=== PATIENT | male | born 1945 | race Caucasian/White ===

== ENCOUNTER 2022-07-07 16:01 | Inpatient (IN) | payer OTHER, SELFPAY ==
[2022-07-07] VITALS (7 sets, daily range): BP systolic 125–148; BP diastolic 70–85; PULSE 75–84; RESP 14–18; TEMP 36.8–37; O2SAT 95–99; BMI 23.4
[2022-07-07 17:03] LABS: Basophils # 0.1 10^3/uL (0.0-0.1); Basophils % 0.6 %; Eosinophils # 0.1 10^3/uL (0.0-0.8); Eosinophils % 0.7 %; Hematocrit 53.4 % (42.0-52.0); Hemoglobin 17.5 g/dL (11.7-16.6); Lymphocytes # 3.2 10^3/uL (0.8-4.8); Lymphocytes % 17.8 %; Mean Corpuscular HGB Conc 32.8 g/dL (30.0-36.0); Mean Corpuscular Hemoglobin 29.8 pg (28.0-34.0); Mean Corpuscular Volume 90.8 fl (80-94); Mean Platelet Volume 10.1 fL (7.4-10.4); Monocytes % 5.7 %; Neutrophils # 13.52 10^3/uL (1.8-7.7); Neutrophils % 74.9 %; Nucleated Red Blood Cells % 0 %; Platelet Count 251 10^3/cmm (130-400); Red Blood Count 5.88 10^6/uL (4.1-5.3); Red Cell Distribution Width 12.3 % (12.1-15.1)
[2022-07-07 17:23] LABS: Alanine Aminotransferase 26 U/L (0-41); Albumin Level 4.2 g/dL (3.5-5.2); Alkaline Phosphatase 82 U/L (40-130); Anion Gap 15.6 (5-19); Aspartate Amino Transferase 21 U/L (0-40); Blood Urea Nitrogen 8 mg/dL (8-23); Carbon Dioxide 30 mmol/L (22-29); Chloride 99 mmol/L (98-107); Glucose 131 mg/dL (65-115); Lipase 42 U/L (13-60); Osmolality Calculated 292 mOsm/kg (285-295); Potassium 3.6 mmol/L (3.5-5.1); Sodium 141 mmol/L (136-145); Total Bilirubin 0.9 mg/dL (0.15-1.2); Total Protein 7.2 g/dL (6.6-8.7)
--- NOTE | 2022-07-07 17:41 | W.ED.ABDPA2 ---
Documented by User: Bryn Damon DO 07/07/22 18:17 HPI - Abdominal Pain General: Chief Complaint: Abdominal Pain Stated Complaint: Abd pains Time Seen by Provider: 07/07/22 17:30 Source: patient Mode of arrival: ambulatory History of Present Illness: 77-year-old male presents emergency room with complaints of epigastric abdominal pain that began yesterday. Single episode of vomiting no hematemesis or coffee-ground emesis no melanic stools or dark-colored stools. He did have some dysuria and frequency that seems to have resolved no hematuria he denies any fever. No associated flank pain he has not found anything that exacerbates or relieves it. MD elicited complaint: abdominal pain Onset (ago): hour(s) Pain Consistency: constant Location: Epigastric Severity: mild Quality: aching Radiation: none Exacerbating factors: nothing Relieving factors: nothing Associated Symptoms: Reports GI cramping, dysuria, nausea, poor appetite and vomiting; Denies belching, bloating, change in bowel habits, change in stool character, chills, coffee ground emesis, constipation, diarrhea, dyspepsia, excessive flatus, fever(s), heartburn, hematochezia, hematuria, hematemesis, fecal incontinence, loose stools, melena and syncope Review of Systems Const: Denies: fever(s), chills, fatigue or malaise ENMT: Denies: throat pain, ear or mastoid pain, nasal discharge or nasal congestion Card: Denies: chest pain, palpitations, irregular heart rhythm or syncope Resp: Denies: dyspnea, productive cough or non-productive cough GI: Reports: abdominal pain, nausea, vomiting and GI cramping; Denies: hematemesis, coffee ground emesis, heartburn, diarrhea, constipation, bloating, belching, excessive flatus, fecal incontinence, change in bowel habits, change in stool character, hematochezia or melena : Reports: dysuria and urinary frequency; Denies: flank pain, urinary urgency or hematuria Skin/Breast: Denies: rash or pruritus PFSH ED PFSH: Social History Smoking and tobacco status: never smoked Alcohol intake: never Physical Exam Const: GENERAL APPEARANCE: cooperative and comfortable ORIENTATION/CONSCIOUSNESS: Yes awake, Yes oriented to person, Yes oriented to place and Yes oriented to time HENMT: COMMON NORMALS: normocephalic, atraumatic and hearing grossly normal bilaterally HEAD & SCALP: normocephalic and atraumatic Resp: COMMON NORMALS: normal respiratory effort, No retractions, No use of accessory muscles and clear to auscultation bilaterally AUSCULTATION: clear to auscultation bilaterally Cardio: COMMON NORMALS: regular rate, regular rhythm and No murmurs present (Cardio) RATE: regular rate RHYTHM: regular rhythm GI: COMMON NORMALS: Soft to palpation and No hepatosplenomegaly present AUSCULTATION: Yes normoactive bowel sounds PALPATION: Yes Soft to palpation, No Tenderness to palpation present (GI), No Guarding due to palpation present (GI) and Yes No hepatosplenomegaly present Extremity: COMMON NORMALS: normal to inspection, capillary refill normal, no clubbing, cyanosis or edema, no calf tenderness and no pedal edema Neuro: SENSORIUM/ORIENTATION: Yes oriented to person, Yes oriented to place and Yes oriented to time Skin: COMMON NORMALS: no rashes or lesions noted GENERAL SKIN EXAM: no rashes or lesions noted Course Vital Signs: Vital signs: Vital Signs Temperature 98.3 F 07/07/22 16:11 Pulse Rate 81 07/07/22 19:00 Respiratory Rate 18 07/07/22 16:11 Blood Pressure 143/70 07/07/22 19:00 Pulse Oximetry 96 07/07/22 19:00 Oxygen Delivery Me thod 07/07/22 19:00 MDM - Abdominal Pain Medical Decision Making Care signed out to Dr. Weaver at change of shift. See final notes for diagnosis and disposition. Medical Records I reviewed the patient's medical records. Lab Data I reviewed the patient's lab results. 07/07/22 16:55 07/07/22 16:55 Labs/Radiology: Radiology Impressions Abdomen/Pelvis CT 07/07/22 17:48 IMPRESSION: 1. Long segment of narrowed mid small bowel with wall thickening. This likely represents infectious versus inflammatory enteritis and may be causing low-grade partial obstruction. 2. Cholelithiasis. COMMENTS: Consistent with the [employer]'s Incidental Findings Committee white paper (J Am Diane Radiol 2018): Any incidental renal lesion less than 1 cm or classified as too small to characterize, or any incidental cystic renal lesion characterized as simple-appearing, is likely benign. No follow-up imaging is recommended for these lesions per consensus recommendations based on imaging criteria. Laboratory Results WBC 18.0 10^3/uL (4.0-10.0) H 07/07/22 16:55 RBC 5.88 10^6/uL (4.1-5.3) H 07/07/22 16:55 Hgb 17.5 g/dL (11.7-16.6) H 07/07/22 16:55 Hct 53.4 % (42.0-52.0) H 07/07/22 16:55 MCV 90.8 fl (80-94) 07/07/22 16:55 MCH 29.8 pg (28.0-34.0) 07/07/22 16:55 MCHC 32.8 g/dL (30.0-36.0) 07/07/22 16:55 RDW 12.3 % (12.1-15.1) 07/07/22 16:55 Plt Count 251 10^3/cmm (130-400) 07/07/22 16:55 MPV 10.1 fL (7.4-10.4) 07/07/22 16:55 Neut % (Auto) 74.9 % 07/07/22 16:55 Lymph % (Auto) 17.8 % 07/07/22 16:55 Keith % (Auto) 5.7 % 07/07/22 16:55 Eos % (Auto) 0.7 % 07/07/22 16:55 Baso % (Auto) 0.6 % 07/07/22 16:55 Neut # (Auto) 13.52 10^3/uL (1.8-7.7) H 07/07/22 16:55 Lymph # (Auto) 3.2 10^3/uL (0.8-4.8) 07/07/22 16:55 Keith # (Auto) 1.0 10^3/uL (0.2-0.9) H 07/07/22 16:55 Eos # (Auto) 0.1 10^3/uL (0.0-0.8) 07/07/22 16:55 Baso # (Auto) 0.1 10^3/uL (0.0-0.1) 07/07/22 16:55 Nucleated RBC % (auto) 0 % 07/07/22 16:55 Nucleated RBCs # 0.0 /100WBC 07/07/22 16:55 Sodium 141 mmol/L (136-145) 07/07/22 16:55 Potassium 3.6 mmol/L (3.5-5.1) 07/07/22 16:55 Chloride 99 mmol/L (98-107) 07/07/22 16:55 Carbon Dioxide 30 mmol/L (22-29) H 07/07/22 16:55 Anion Gap 15.6 (5-19) 07/07/22 16:55 BUN 8 mg/dL (8-23) 07/07/22 16:55 Creatinine 1.0 mg/dL (0.7-1.2) 07/07/22 16:55 GFR Calculation Not Reportable 07/07/22 16:55 Glucose 131 mg/dL (65-115) H 07/07/22 16:55 Calculated Osmolality 292 mOsm/kg (285-295) 07/07/22 16:55 Calcium 10.0 mg/dL (8.5-10.5) 07/07/22 16:55 Total Bilirubin 0.9 mg/dL (0.15-1.2) 07/07/22 16:55 AST 21 U/L (0-40) 07/07/22 16:55 ALT 26 U/L (0-41) 07/07/22 16:55 Alkaline Phosphatase 82 U/L (40-130) 07/07/22 16:55 Total Protein 7.2 g/dL (6.6-8.7) 07/07/22 16:55 Albumin 4.2 g/dL (3.5-5.2) 07/07/22 16:55 Globulin 3.0 g/dL (1.3-4.6) 07/07/22 16:55 Lipase 42 U/L (13-60) 07/07/22 16:55 Urine Color Yellow (Yellow) 07/07/22 18:00 Urine Appearance Hazy (CLEAR) A 07/07/22 18:00 Urine pH 7 (5-7) 07/07/22 18:00 Ur Specific Marshall 1.010 (1.005-1.030) 07/07/22 18:00 Urine Protein 1+ (Negative) H 07/07/22 18:00 Urine Glucose (UA) Norm (Normal) 07/07/22 18:00 Urine Ketones Negative (Negative) 07/07/22 18:00 Urine Blood Neg (Negative) 07/07/22 18:00 Urine Nitrate Negative (Negative) 07/07/22 18:00 Urine Bilirubin Neg (Negative) 07/07/22 18:00 Urine Urobilinogen Neg mg/dL (Negative) 07/07/22 18:00 Ur Leukocyte Esterase Negative (Negative) 07/07/22 18:00 Urine RBC None /hpf (0-2) 07/07/22 18:00 Urine WBC None /hpf (0-5) 07/07/22 18:00 Ur Squamous Epith Cells None /hpf (0-5) 07/07/22 18:00 Amorphous Sediment 1+ /hpf 07/07/22 18:00 Urine Bacteria None /hpf (NONE) 07/07/22 18:00 Urine Mucus 1+ /hpf 07/07/22 18:00 Discharge Plan Discharge Patient Disposition: Admitted As Inpatient Clinical Impression: Enteritis, Small bowel obstruction Condition: Stable Coding Level of Care Code ED Medical Records Receptionist for Chg Fwd Exam Detailed Documented by User: Eusebio Weaver DO 07/07/22 19:48 HPI - Abdominal Pain General: Chief Complaint: Abdominal Pain Stated Complaint: Abd pains Time Seen by Provider: 07/07/22 17:30 PFSH ED PFSH: Social History Smoking and tobacco status: never smoked Alcohol intake: never Course Consultations: Consultation #1: Giurgius Consultation #2: Junior Vital Signs: Vital signs: Vital Signs Temperature 98.3 F 07/07/22 16:11 Pulse Rate 81 07/07/22 19:00 Respiratory Rate 18 07/07/22 16:11 Blood Pressure 143/70 07/07/22 19:00 Pulse Oximetry 96 07/07/22 19:00 Oxygen Delivery Me thod 07/07/22 19:00 MDM - Abdominal Pain Medical Decision Making Care signed out to Dr. Weaver at change of shift. See final notes for diagnosis and disposition. 77-year-old male patient signed out to me at shift change. This patient has a white blood cell count of 18, hemoglobin of 17.5. BMP is not terribly remarkable. CT of the belly shows a long segment of narrowed small bowel with significant wall thickening. There is a transition point on the CT. likely a enteritis causing a small bowel obstruction. The report says low-grade partial obstruction at 1 point, but also says there is a transition point. His small bowel is dilated to 3.5 cm which is significant. Spoke with surgery. The recommendations are Cipro, Flagyl, n.p.o., IV fluids, and NG tube. I have ordered these. Have a call out to the hospitalist now. Lab Data 07/07/22 16:55 07/07/22 16:55 Labs/Radiology: Radiology Impressions Abdomen/Pelvis CT 07/07/22 17:48
--- NOTE | 2022-07-07 17:48 | CTR_ITS ---
PROCEDURE INFORMATION: Exam: CT Abdomen And Pelvis With Contrast Exam date and time: 07/07/2022 6:11 PM Age: 77 years old Clinical indication: Abdominal pain; Localized; Upper; Additional info: Abd pain TECHNIQUE: Imaging protocol: Computed tomography of the abdomen and pelvis with contrast. Radiation optimization: All CT scans at this facility use at least one of these dose optimization techniques: automated exposure control; mA and/or kV adjustment per patient size (includes targeted exams where dose is matched to clinical indication); or iterative reconstruction. Contrast material: OMNI 350; Contrast volume: 100 ml; Contrast route: INTRAVENOUS (IV); COMPARISON: US gall bladder [id number] 12/24/2017 7:48 AM RADIATION DOSE METRICS: Total DLP (mGy-cm): 493.78 FINDINGS: Lungs: Right middle lobe calcified granulomas. Liver: Normal. No mass. Gallbladder and bile ducts: 8 mm calcified stone in the gallbladder. No wall thickening. The bile ducts are normal. Pancreas: Normal. No ductal dilation. Spleen: Calcified granulomas in the spleen. Adrenal glands: Normal. No mass. Kidneys and ureters: Right renal cyst, Hounsfield units less than 20. Tiny hypodensities in the right kidney are too small to characterize but are also likely cysts. No follow-up imaging recommended. The kidneys are otherwise unremarkable. No calculus or hydronephrosis. Stomach and bowel: There are multiple loops of dilated proximal and mid small bowel containing fluid and gas and measuring up to 3.5 cm. There is a transition point within the lower anterior abdomen proximal to a long segment small bowel with wall thickening and narrowing. Appendix: The appendix is visualized and is normal. Intraperitoneal space: Mild pelvic ascites. No free peritoneal air. Vasculature: Arterial calcifications. No aneurysm. Lymph nodes: Unremarkable. No enlarged lymph nodes. Urinary bladder: Unremarkable as visualized. Reproductive: Inhomogenous mildly enlarged prostate measuring 4.6 cm. Coarse prostate calcification. Bones/joints: Degenerative changes of the spine. No fracture. Soft tissues: Unremarkable. CT/CT abdomen pelvis w con* [id number] IMPRESSION: 1. Long segment of narrowed mid small bowel with wall thickening. This likely represents infectious versus inflammatory enteritis and may be causing low-grade partial obstruction. 2. Cholelithiasis. COMMENTS: Consistent with the [employer]'s Incidental Findings Committee white paper (J Am Diane Radiol 2018): Any incidental renal lesion less than 1 cm or classified as too small to characterize, or any incidental cystic renal lesion characterized as simple-appearing, is likely benign. No follow-up imaging is recommended for these lesions per consensus recommendations based on imaging criteria.
[2022-07-07 18:49] LABS: Add Urine Microscopic? YES; Bilirubin Urine Neg (Negative); Blood Urine Neg (Negative); Glucose Urine UA Norm (Normal); Ketones Urine Negative (Negative); Leukocyte Esterase Urine Negative (Negative); Nitrate Urine Negative (Negative); Protein Urine 1+ (Negative); Urine Appearance Hazy (CLEAR); Urine Color Yellow (Yellow); Urobilinogen Urine Neg (Negative); pH Urine 7 (5-7)
[2022-07-07 18:50] LABS: Add Urine Culture? No; Amorphous Sediment Urine 1+ /hpf; Mucus Urine 1+ /hpf
[2022-07-07] MEDS: sodium chloride 0.9% 1,000 ML 999 ML IV (18:59)
[2022-07-07] MEDS: cetacaine Spray 5 gm Can 1 SPRAY TOPICAL (19:30)
--- NOTE | 2022-07-07 19:41 | P.HP_ITS ---
Providers/Chief Complaint Primary Care Provider: Marino Balderas DO Chief Complaint: Abd pains History of Present Illness Antoine Driver is a 77 year old male without significant past medical surgical history presented with chief complaint of abdominal pain and vomiting. 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 He only carries diagnosis of hiatal hernia, he does get a lot of retching and abdominal discomfort on and off. He was diagnosed with hiatal hernia incidentally. Today he was experiencing abdominal discomfort which he was describing as burning sensation and a lot of belching, experienced 2 episodes of emesis at home while he was getting ready to come to the ER. ER he has been diagnosed with enteritis small bowel dilation up to 3 cm, cholelithiasis and small bowel obstruction. Dr. Victoria has been consulted he has recommended ciprofloxacin and Flagyl. He is not septic NG tube has been placed patient is endorsing feeling slightly better after NG tube placement Patient is stating his previous colonoscopy was normal, no history of peptic ulcer disease, or cancer No family history of GI cancer No one else sick at home His last bowel movement was this morning His last meal was tomato soup around lunch Review of Systems Const: Reports: chills and body aches Eyes: Denies: change in vision ENMT: Denies: throat pain Card: Denies: chest pain Resp: Denies: dyspnea GI: Reports: abdominal pain, nausea and vomiting : Denies: flank pain Musc: Denies: neck pain Skin/Breast: Denies: rash Neuro: Denies: headache(s) Psych: Denies: anxiety Endo: Denies: polyuria Elton/Lymph: Denies: easy bruising All/Imm: Denies: urticaria Medications/Allergies Allergies Allergy/AdvReac Type Severity Reaction Status Date / Time No Known Allergies Allergy Verified 07/07/22 16:10 PFSH Acute PFSH: Medical History (Updated 07/07/22 @ 20:37 by Kelsi Pacheco MD) Hiatal hernia Surgical History (Updated 07/07/22 @ 20:37 by Kelsi Pacheco MD) No pertinent past surgical history Family History (Updated 07/07/22 @ 20:38 by Kelsi Pacheco MD) Denies family history of CAD (coronary artery disease) Cancer Social History Smoking and tobacco status: never smoked Alcohol intake: never Vitals/I&O/Wt Last Vital Signs Temp 98.3 F 07/07/22 16:11 Pulse 81 07/07/22 19:00 Resp 18 07/07/22 16:11 BP 143/70 07/07/22 19:00 Pulse Ox 96 07/07/22 19:00 O2 Del Method 07/07/22 19:00 Weight last 48 hrs Weight 72.575 kg Physical Exam Narrative: Pleasant elderly male Appears dehydrated Awake and alert Nonfocal neuro exam NG tube in place Abdomen soft Sluggish bowel sounds left lower quadrant, positive bowel sounds right upper quadrant area, Awake and alert S1, S2 Doing well on room air at the bedside Pleasant and cooperative Data 07/07/22 16:55 07/07/22 16:55 A&P Assessment and plan (1) Small bowel obstruction: (2) Enteritis: Plan Enteritis SBO NG tube to low intermittent suction Dr. Victoria consulted notified by the ER physician N.p.o. for now Previous colonoscopies unremarkable Last bowel movement was this morning Patient will get ciprofloxacin and Flagyl D5 normal saline IV fluids I will only give him a low-dose of Decadron to decrease inflammation Patient carry history of hiatal hernia Cholelithiasis without active symptoms Patient is dehydrated with hemoconcentration anticipating provement with IV fluid hydration Full code N.p.o. DVT prophylaxis SCDs using SCDs in case he requires any surgical intervention Attestations Medical Necessity Statement*: Anticipating more than 2 midnights for SBO man agement Time Spent in Patient Care: 40 Coding Level of Care Code Acute Knife Machine Operator for Chg Fwd Diagnoses Small bowel obstruction K56.609 Enteritis K52.9
[2022-07-07 20:08] LABS: D Dimer 2.17 ug/mIFEU (0-0.59)
[2022-07-07] MEDS: metroNIDAZOLE IV 500 MG/100 ML PREMIX 100 MG IV (20:08)
--- NOTE | 2022-07-07 20:12 | XRR_ITS ---
PROCEDURE INFORMATION: Exam: XR Chest Exam date and time: 07/07/2022 8:40 PM Age: 77 years old Clinical indication: Device placement; Ng tube; Additional info: Ng tube placement TECHNIQUE: Imaging protocol: Radiologic exam of the chest. Views: 1 view. COMPARISON: CR XR chest 2V* [id number] 12/09/2017 10:03 AM FINDINGS: Tubes, catheters and devices: Gastric tube placement with tip in the mid stomach. Lungs: Unremarkable. No consolidation. Pleural spaces: Unremarkable. No pleural effusion. No pneumothorax. Heart/Mediastinum: Unremarkable. No cardiomegaly. Bones/joints: Unremarkable. XR/XR chest 1V portable [id number] IMPRESSION: Gastric tube in the mid stomach.
[2022-07-07 20:23] LABS: Procalcitonin 0.07 ng/mL (0-0.5)
[2022-07-07] MEDS: ipratropium-albuterol 3 mL Neb INHALATION (20:24)
[2022-07-07] MEDS: ciprofloxacin 400 MG/200 ML PREMIX 200 MG IV (21:05)
[2022-07-07] MEDS: dextrose 5%-sod chloride 0.9% 1,000 ML 75 ML IV (22:31)
[2022-07-08] VITALS: BP 122/63; PULSE 65; RESP 17; TEMP 36.4; O2SAT 97
[2022-07-08] MEDS: metroNIDAZOLE IV 500 MG/100 ML PREMIX 100 MG IV ×3 (03:48→18:37)
--- NOTE | 2022-07-08 03:53 | PC.NURSE ---
Patient's came out of room at the same time that nurse rounded on patient. Patient found sitting on side of bed, blood on floor, IV removed and NG tube out. reports patient trying to get out of bed several times, and last time found patient out of bed trying to get to restroom. New IV placed in right forearm. New NG tube placed in right nare, secured with venaguard, set to low intermittent suction; NG tube verified via air instilled into stomach. okayed for bed alarm to be set in order to ensure IV and NG tube do not become displaced again. Patient resting in bed, locked in lowest position with both side rails up and call light within reach. Patient stated no further needs at this time.
[2022-07-08 04:00] VITALS: BP 134/74; PULSE 73; RESP 17; TEMP 36.4; O2SAT 97
--- NOTE | 2022-07-08 05:25 | PM.CONSULT ---
Providers/Reason For Consult Consulting Physician/Specialty*: Arturo Victoria MD Reason for Consult*: Bowel obstruction Requesting Physician: Dr. Weaver Attending Physician: Kelsi Pacheco MD Primary Care Provider: Marino Balderas DO History of Present Illness History of Present Illness Mr. Antoine Driver is a pleasant 77 year old male presents to the emergency department with worsening abdominal pain and vomiting. The form of burning sensation associated with belching. Patient had 2 episodes of vomiting at home and further work-up in the emergency department showed leukocytosis of 18,000 and rest of the labs are unremarkable. CT of the abdomen pelvis was done and showed 1. Long segment of narrowed mid small bowel with wall thickening.? This likely represents infectious versus inflammatory enteritis and may be causing low-grade partial obstruction. 2. Cholelithiasis. Patient was admitted to the hospitalist and general surgery was consulted for further evaluation. NG was placed and ciprofloxacin were initiated. Patient had a bowel movement yesterday and seems overall feeling better. Patient reports that he got sick all of a sudden yesterday that he had a bowl of cereal. Review of Systems General: Reports: 10 or more systems reviewed and unremarkable except in HPI and below Medications/Allergies Allergies Allergy/AdvReac Type Severity Reaction Status Date / Time No Known Allergies Allergy Verified 07/08/22 05:29 Current Medications Generic Name Dose Route Start Last Admin Trade Name Freq PRN Reason Stop Dose Admin Albuterol/Ipratropium 3 ml 07/07/22 19:41 07/07/22 20:24 Ipratropium-Albuterol 3 Ml Neb INHALATION 3 ml Q6H PRN Administration SHORTNESS OF BREATH Metronidazole 500 mg in 100 mls @ 100 mls/hr 07/07/22 19:30 07/08/22 04:58 Flagyl Iv IV Infused Q8H PRITI Infusion Protocol Dextrose/Sodium Chloride 1,000 mls @ 75 mls/hr 07/07/22 19:45 07/07/22 22:31 Dextrose 5%-Sod Chloride 0.9% IV 75 mls/hr .[id number] PRITI Administration PFSH Acute PFSH: Medical History Hiatal hernia Surgical History No pertinent past surgical history Family History Denies family history of CAD (coronary artery disease) Cancer Social History Smoking and tobacco status: never smoked Alcohol intake: never Vitals/I&O/Wt Last Vital Signs Temp 97.6 F 07/08/22 04:00 Pulse 73 07/08/22 04:00 Resp 17 07/08/22 04:00 BP 134/74 07/08/22 04:00 Pulse Ox 97 07/08/22 04:00 O2 Del Method 07/07/22 21:32 07/07/22 07/07/22 07/08/22 14:59 22:59 06:59 Intake Total 1300 / 1300 100 / 1400 Balance 1300 / 1300 100 / 1400 Weight last 48 hrs Weight 163 lb 5 oz Weight 160 lb Physical Exam Narrative: Patient is conscious alert oriented X3 No apparent distress BMI 23.4 Head and neck examination PERRLA no masses no cervical lymphadenopathy no jaundice NG in place Cardiac examination audible S1-S2 no murmurs no gallops no arrhythmias Chest is clear bilateral,abscence of Rhonchi or wheezes,no surgical emphysema Abdomen nontender nondistended soft no organomegaly guarding or rigidity/no signs of peritonitis Extremities no cyanosis no clubbing no edema Data 07/07/22 16:55 07/07/22 16:55 A&P Assessment and plan (1) Small bowel obstruction: After thorough history physical examination reviewing the chart and images with my personal interpretation I do not see any distinct evidence of bowel obstruction. Likely the patient had an underlying gastroenteritis Continue conservative measures Appropriate IV fluid resuscitation and antimicrobial therapy Repeated physical exam Continue NG to low intermittent wall suction Assurance and education All questions have been answered and all concerns have been addressed to patient's satisfaction. Consult Attestations Medical Necessity Statement: Per admitting service Coding Level of Care Code Acute Rubber Stamp Dies Inspector for Chg Fwd Diagnoses Small bowel obstruction K56.609
[2022-07-08 05:44] LABS: Basophils % 0.3 %; Eosinophils # 0.1 10^3/uL (0.0-0.8); Eosinophils % 0.9 %; Hematocrit 44.5 % (42.0-52.0); Hemoglobin 14.5 g/dL (11.7-16.6); Lymphocytes # 1.7 10^3/uL (0.8-4.8); Mean Corpuscular HGB Conc 32.6 g/dL (30.0-36.0); Mean Corpuscular Hemoglobin 29.3 pg (28.0-34.0); Mean Corpuscular Volume 89.9 fl (80-94); Monocytes # 0.7 10^3/uL (0.2-0.9); Monocytes % 7.3 %; Neutrophils # 6.53 10^3/uL (1.8-7.7); Neutrophils % 72.3 %; Nucleated Red Blood Cells % 0 %; Platelet Count 194 10^3/cmm (130-400); Red Blood Count 4.95 10^6/uL (4.1-5.3); Red Cell Distribution Width 12.4 % (12.1-15.1)
[2022-07-08 06:07] LABS: Anion Gap 11.5 (5-19); Blood Urea Nitrogen 9 mg/dL (8-23); C Reactive Protein 3.7 mg/L (0.0-4.9); Calcium 8.6 mg/dL (8.5-10.5); Carbon Dioxide 25 mmol/L (22-29); Chloride 102 mmol/L (98-107); Glucose 110 mg/dL (65-115); Magnesium 2.1 mg/dL (1.7-2.3); Osmolality Calculated 279 mOsm/kg (285-295); Phosphorus 3.2 mg/dL (2.5-4.5); Potassium 3.5 mmol/L (3.5-5.1); Sodium 135 mmol/L (136-145)
[2022-07-08 08:00] VITALS: BP 151/66; PULSE 65; RESP 16; TEMP 36.5; O2SAT 97
[2022-07-08] MEDS: pantoprazole 40 mg SDV IVP ×2 (09:07→18:37)
[2022-07-08] MEDS: ciprofloxacin 400 MG/200 ML PREMIX 200 MG IV ×2 (09:07→21:44)
[2022-07-08 11:33] VITALS: BP 150/77; PULSE 62; RESP 16; TEMP 36.4; O2SAT 97
--- NOTE | 2022-07-08 11:47 | PC.CHAP ---
Pastoral Care Encounter/Spiritual Assessment Type of Contact [] Declined assembler carbon brushes visit [] Patient/Family/Request visit [] Outpatient visit [] Follow-up visit [] Physician referral [] Code/Alert [x] Routine visit [] Staff referral [] Actively dying [] Patient sleeping [] Family support [] [] Out of room [] Palliative care [] [] Receiving care in room [] Pre-surgical visit [] Trauma [] Long length of stay [] ICU visit [] Other: Relational/Emotional Strength [x] Patient feels connected with others/family/visitors/staff [] Distress [] Loneliness/isolation [] Abandonment Spirituality of Patient [x] Person of Danni [] Attends Yazidism of their Danni [x] Believes in Prayer [] Reads Bible or Mosque materials [] There are Spiritual issues to be addressed Director Case Interventions [x] Prayer [x] Active listening [] Non-anxious presence [x] Spiritual/emotional support [] Crisis/trauma care [] Spiritual counseling [] Bereavement support [] Provided bereavement packet [] Provided Bible/devotional materials [] Provided toy/stuffed animal, coloring book to patient or family member [] Provided Communion [] Anointing/[place] [] Salvation [x] Completed spiritual assessment [] Other: Impact on Illness or Injury [] Angry [] Fearful [] Anxious [] Often cries [] Exhaustion [] Unable to work [] Unable to attend jainism [] Unable to walk/stand [] Unable to read [] Unable to drive [] Unable to eat/drink [] Unable to sleep [] Unable to be with family [] Patient intubated [] Other: Summary Time spent with patient 15 min
--- NOTE | 2022-07-08 14:10 | P.PN_ITS ---
Subjective Subjective: Patient was seen and examined this morning, NG tube to low intermittent suction, no bowel movements today, has chronic constipation, denies any nausea vomiting abdominal pain. WBC count is trending down, afebrile Medications: Medication Review Details: Generic Name Dose Route Start Last Admin Trade Name Jeradq PRN Reason Stop Dose Admin Albuterol/Ipratrop ium 3 ml 07/07/22 19:41 07/07/22 20:24 Ipratropium-Albu terol 3 Ml Neb INHALATION 3 ml Q6H PRN Administration SHORTNESS OF DARRIUS TH Metronidazole 500 mg in 100 mls @ 100 mls/hr 07/07/22 19:30 07/08/22 13:33 Flagyl Iv IV 100 mls/hr Q8H PRITI Administration Protocol Dextrose/Sodium Ch loride 1,000 mls @ 75 ml s/hr 07/07/22 19:45 07/07/22 22:31 Dextrose 5%-Sod Chloride 0.9% IV 75 mls/hr .[id number] PRITI Administration Ciprofloxacin/Dext rosales 400 mg in 200 mls @ 200 mls/hr 07/08/22 09:00 07/08/22 10:25 Cipro IV Infused Q12H PRITI Infusion Protocol Pantoprazole Sodiu m 40 mg 07/08/22 09:00 07/08/22 09:07 Pantoprazole 40 Mg Sdv IVP 40 mg BID PRITI Administration Vitals/I&O/Wt Last Vital Signs Temp 97.6 F 07/08/22 11:33 Pulse 62 07/08/22 11:33 Resp 16 07/08/22 11:33 BP 150/77 07/08/22 11:33 Pulse Ox 97 07/08/22 11:33 O2 Del Method 07/08/22 11:33 07/07/22 07/08/22 07/08/22 22:59 06:59 14:59 Intake Total 1300 / 1300 100 / 1400 440 / 440 Balance 1300 / 1300 100 / 1400 440 / 440 Weight last 48 hrs Weight 74.077 kg Weight 72.575 kg Physical Exam 2 Const: COMMON NORMALS: patient oriented x3 HENMT: COMMON NORMALS: normocephalic and atraumatic HEAD & SCALP: normocephalic and atraumatic Eye: GENERAL EYE: appearance normal, both eyes and all related structures Chest: COMMONS NORMALS: normal inspection of the chest and normal palpation of entire chest wall CHEST: Yes Symmetrical chest wall rise Resp: COMMON NORMALS: normal respiratory effort, No retractions, No use of accessory muscles and clear to auscultation bilaterally EFFORT & INSPECTION: Yes symmetric chest movement AUSCULTATION: clear to auscultation bilaterally Cardio: COMMON NORMALS: regular rate, regular rhythm, S1 normal heart sound present, S2 normal heart sound present, No gallops present (Cardio), No murmurs present (Cardio), No rub (Cardio) and Peripheral pulses 2+ throughout RATE: regular rate RHYTHM: regular rhythm HEART SOUNDS: S1 normal heart sound present and S2 normal heart sound present PERIPHERAL PULSES: Peripheral pulses 2+ throughout GI: COMMON NORMALS: Normal to inspection, nondistended, normoactive bowel sounds present, Soft to palpation, non-tender, No hepatosplenomegaly present and no masses PALPATION: Yes Soft to palpation and Yes No hepatosplenomegaly present RECTAL EXAM: Yes deferred OTHER: Hypoactive bowel sounds Extremity: COMMON NORMALS: no clubbing, cyanosis or edema and no pedal edema Neuro: COMMON NORMALS: patient oriented x3 Data 07/08/22 04:37 07/08/22 04:37 A&P Assessment and plan (1) Small bowel obstruction: (2) Enteritis: Plan 77-year-old male with past medical history of chronic constipation came in with chief complaint of abdominal pain nausea vomiting started yesterday. He was admitted for the management of: Assessment: SBO Enteritis H/O hiatal hernia Cholelithiasis: Dehydration Plan: CT abdomen pelvis w con: Long segment of narrowed mid small bowel with wall thickening.?This likely represents infectious versus inflammatory enteritis and may be causing low-grade partial obstruction. Continue NG tube to low intermittent suction N.p.o. Continue gentle IV hydration Pain control Antiemetics Hydralazine as needed Continue metronidazole and ciprofloxacin CODE STATUS: Full code DVT prophylaxis on SCDs Attestations Medical Necessity Statement*: Patient is still in hospital for management of small bowel obstruction. Coding Level of Care Code Acute Cold Roll Operator for [facility] Fwd Exam Comprehensive Diagnoses Small bowel obstruction K56.609 Enteritis K52.9
[2022-07-08] MEDS: sodium chloride 0.9% 1,000 ML 50 ML IV (15:09)
[2022-07-08 16:00] VITALS: BP 157/77; PULSE 71; RESP 18; TEMP 36.3; O2SAT 98
[2022-07-08] MEDS: ziprasidone 20 mg/mL SDV 5 MG IM (18:37)
[2022-07-08] MEDS: glycerin adult supp 1 EACH PR (18:37)
[2022-07-08 19:56] VITALS: BP 138/70; PULSE 69; RESP 17; TEMP 36.6; O2SAT 95
--- NOTE | 2022-07-08 22:35 | PC.NURSE ---
Patient's NG output 700ml, output a murky brown but is see-through. Patient resting in bed, locked in lowest position with both side rails up and call light within reach. Patient and spouse stated no further needs at this time.
[2022-07-09] VITALS: BP 150/72; PULSE 77; RESP 17; TEMP 36.7; O2SAT 96
--- NOTE | 2022-07-09 02:55 | PC.NURSE ---
Patient attempted to get out bed again, displaced NG tube but did not pull it out all the way. NG tube placed back at proper measurement. Patient now resting in chair, at bedside.
[2022-07-09] MEDS: metroNIDAZOLE IV 500 MG/100 ML PREMIX 100 MG IV ×2 (03:30→13:34)
[2022-07-09 04:00] VITALS: BP 150/77; PULSE 70; RESP 17; TEMP 36.6; O2SAT 98
--- NOTE | 2022-07-09 04:19 | PC.NURSE ---
Spouse reported patient got confused and stood up again. NG tube completely removed. New NG placed in right nare, secured with venaguard and tube secured to patient's gown. Placement verified by instilling air and auscultating. NG tube set to low, intermittment suction with clear gastric content return. Nurse offered to set bed alarm and patient and spouse initially agreed, but once patient tried to move from bed and bed alarm sounded, spouse insisted bed alarm be turned off. Patient and spouse educated to use call light if they needed anything.
--- NOTE | 2022-07-09 04:34 | PC.NURSE ---
Patient alert to name and . When asked where patient was, what day it was, and what month it was, patient stated that he did not know. Patient resting in bed, both side rails up and call light within reach. Patient and spouse educated to use call light if patient needed anything.
--- NOTE | 2022-07-09 05:04 | PC.NURSE ---
Dr Pacheco notified of patient's BP running 150s/70s
--- NOTE | 2022-07-09 05:46 | PC.NURSE ---
Patient rounded on, found standing up in room with spouse trying to hold NG line in place on shirt. stated that it hurts right here and pointed to her heart, and stated seeing him this way. Spouse states that patient is more confused than baseline, that patient would occasionally forget where the light switch was at home, or where the bathroom was, and a few times forgot his name. 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 Patient educated to stay in chair and to not pull line out, and spouse and patient both educated to use call light if they needed anything.
--- NOTE | 2022-07-09 06:00 | P.PN_ITS ---
Subjective Subjective: Apparently patient pulled his NG yesterday and was replaced by the nursing staff around 4 AM and had minimal output, did not pass gas or had bowel movement yet and seemed to be confused. Medications: Reviewed: Yes Vitals/I&O/Wt Last Vital Signs Temp 97.8 F 07/09/22 04:00 Pulse 70 07/09/22 04:00 Resp 17 07/09/22 04:00 BP 150/77 07/09/22 04:00 Pulse Ox 98 07/09/22 04:00 O2 Del Method 07/09/22 04:00 07/08/22 07/08/22 07/09/22 14:59 22:59 06:59 Intake Total 1440 / 1440 200 / 1640 300 / 1940 Output Total 700 / 700 Balance 1440 / 1440 -500 / 940 300 / 1240 Weight last 48 hrs Weight 163 lb 5 oz Weight 160 lb Physical Exam Narrative: Patient is confused NG in place BMI 23.4 Head and neck examination PERRLA no masses no cervical lymphadenopathy no jaundice Abdomen nontender nondistended soft no organomegaly guarding or rigidity/no signs of peritonitis Data 07/08/22 04:37 07/08/22 04:37 A&P Assessment and plan (1) Small bowel obstruction: We will start GoLytely through NG slowly over 8 hours to effect Should patient pulled his NG keep it out continue p.o. GoLytely As patient demonstrates bowel activities we will start him on clear liquid diet then advance as tolerated potential discharge home. Assurance and education All questions have been answered and all concerns have been addressed to patient's satisfaction. Attestations Medical Necessity Statement*: Per admitting service Coding Level of Care Code Acute Transmission System Operator for [facility] Fwd Diagnoses Small bowel obstruction K56.609
--- NOTE | 2022-07-09 06:00 | PC.NURSE ---
Dr Rivera called asking for patient status. Dr Rivera updated on patient's confused state, that patient had not passed any gas or had BM, and that patient's BP had been elevated. Telephone order given for Golytely over a span of 8 hours, administered through NG tube.
[2022-07-09] MEDS: peg /e-lyte soln 4,000 mL Btl 4000 ML PO (06:43)
[2022-07-09 07:46] VITALS: BP 179/80; PULSE 74; RESP 18; TEMP 36.4; O2SAT 98
[2022-07-09] MEDS: pantoprazole 40 mg SDV IVP (08:26)
[2022-07-09] MEDS: ciprofloxacin 400 MG/200 ML PREMIX 200 MG IV (08:27)
[2022-07-09 11:20] VITALS: BP 141/75; PULSE 79; RESP 18; TEMP 36.4; O2SAT 99
--- NOTE | 2022-07-09 14:02 | PM.PN ---
Subjective Subjective: Patient has kept Pulling his NG tube out, currently he is on oral GoLytely for constipation, denied, any abdominal pain nausea vomiting. Medications: Reviewed: Yes Medication Review Details: Generic Name Dose Route Start Last Admin Trade Name Martell PRN Reason Stop Dose Admin Albuterol/Ipratrop ium 3 ml 07/07/22 19:41 07/07/22 20:24 Ipratropium-Albu terol 3 Ml Neb INHALATION 3 ml Q6H PRN Administration SHORTNESS OF DARRIUS TH Metronidazole 500 mg in 100 mls @ 100 mls/hr 07/07/22 19:30 07/08/22 13:33 Flagyl Iv IV 100 mls/hr Q8H PRITI Administration Protocol Dextrose/Sodium Ch loride 1,000 mls @ 75 ml s/hr 07/07/22 19:45 07/07/22 22:31 Dextrose 5%-Sod Chloride 0.9% IV 75 mls/hr .[id number] PRITI Administration Ciprofloxacin/Dext rosales 400 mg in 200 mls @ 200 mls/hr 07/08/22 09:00 07/08/22 10:25 Cipro IV Infused Q12H PRITI Infusion Protocol Pantoprazole Sodiu m 40 mg 07/08/22 09:00 07/08/22 09:07 Pantoprazole 40 Mg Sdv IVP 40 mg BID PRITI Administration Vitals/I&O/Wt Last Vital Signs Temp 97.5 F L 07/09/22 11:20 Pulse 79 07/09/22 11:20 Resp 18 07/09/22 11:20 BP 141/75 07/09/22 11:20 Pulse Ox 99 07/09/22 11:20 O2 Del Method 07/09/22 11:20 07/08/22 07/09/22 07/09/22 22:59 06:59 14:59 Intake Total 200 / 1640 300 / 1940 200 / 200 Output Total 700 / 700 200 / 900 Balance -500 / 940 100 / 1040 200 / 200 Weight last 48 hrs Weight 74.077 kg Weight 72.575 kg Physical Exam Const: COMMON NORMALS: patient oriented x3 HENMT: COMMON NORMALS: normocephalic and atraumatic HEAD & SCALP: normocephalic and atraumatic Eye: GENERAL EYE: appearance normal, both eyes and all related structures Chest: COMMONS NORMALS: normal inspection of the chest and normal palpation of entire chest wall CHEST: Yes Symmetrical chest wall rise Resp: COMMON NORMALS: normal respiratory effort, No retractions, No use of accessory muscles and clear to auscultation bilaterally EFFORT & INSPECTION: Yes symmetric chest movement AUSCULTATION: clear to auscultation bilaterally Cardio: COMMON NORMALS: regular rate, regular rhythm, S1 normal heart sound present, S2 normal heart sound present, No gallops present (Cardio), No murmurs present (Cardio), No rub (Cardio) and Peripheral pulses 2+ throughout RATE: regular rate RHYTHM: regular rhythm HEART SOUNDS: S1 normal heart sound present and S2 normal heart sound present PERIPHERAL PULSES: Peripheral pulses 2+ throughout GI: COMMON NORMALS: Normal to inspection, nondistended, normoactive bowel sounds present, Soft to palpation, non-tender, No hepatosplenomegaly present and no masses PALPATION: Yes Soft to palpation and Yes No hepatosplenomegaly present RECTAL EXAM: Yes deferred OTHER: Hypoactive bowel sounds Extremity: COMMON NORMALS: no clubbing, cyanosis or edema and no pedal edema Neuro: COMMON NORMALS: patient oriented x3 Data 07/08/22 04:37 07/08/22 04:37 A&P Assessment and plan (1) Small bowel obstruction: (2) Enteritis: Plan 77-year-old male with past medical history of chronic constipation came in with chief complaint of abdominal pain nausea vomiting started yesterday. He was admitted for the management of: Assessment: SBO Enteritis H/O hiatal hernia Chronic constipation Cholelithiasis: Dehydration Plan: CT abdomen pelvis w con: Long segment of narrowed mid small bowel with wall thickening.?This likely represents infectious versus inflammatory enteritis and may be causing low-grade partial obstruction. Continue NG tube to low intermittent suction N.p.o. Continue gentle IV hydration Pain control Antiemetics Hydralazine as needed Continue metronidazole and ciprofloxacin CODE STATUS: Full code DVT prophylaxis on SCDs Attestations Medical Necessity Statement*: Patient is still in hospital management of enteritis Coding Level of Care Code Acute Receiving Dock Checker for [facility] Fw Diagnoses Small bowel obstruction K56.609 Enteritis K52.9
[2022-07-09 15:40] VITALS: BP 147/83; PULSE 78; RESP 16; TEMP 37; O2SAT 98
--- NOTE | 2022-07-09 17:23 | PC.NURSE ---
pt and verbalized understanding of discharge instructions, home medications and follow up appointments. patient was wheeled to the main entrance by staff and assisted into a private vehicle.
[2022-07-09 17:25] VITALS: BP 147/83; PULSE 78; RESP 16; TEMP 37; O2SAT 98
--- NOTE | 2022-07-11 20:49 | PM.DCS ---
Discharge Providers Date of Admission: 07/07/22 20:17 Date of Discharge: July 11, 2022 Attending Provider at Admission: Kelsi Pacheco MD Attending Provider at Discharge: Morgan Aleman MD Primary Care Provider: Marino Balderas DO Diagnoses at Discharge Discharge Diagnosis (1) Small bowel obstruction: Status: Suspected (2) Enteritis: Status: Inactive Reason for Visit Reason for Visit: [facility] Course Hospital Course 77-year-old male with past medical history of chronic constipation came in with chief complaint of abdominal pain nausea vomiting. He was admitted for the management of:SBO as well as enteritis,CT abdomen pelvis w con:?Long segment of narrowed mid small bowel with wall thickening.?This likely represents infectious versus inflammatory enteritis and may be causing low-grade partial obstruction, he was kept NPO,NG,Tube to LIS, gentle IV hydration,Pain control,Antiemetics, as well as Abxs to which he responded well at the time was discharge SBO was resolved, he was tolerating PO well.He was discharged on metronidazole as well as Ciprofloxacin for additional 5 days to complete the abxs course for enteritis.He responded well to above medical management and was discharged home in stable condition. Physical Exam Const: COMMON NORMALS: patient oriented x3 HENMT: COMMON NORMALS: normocephalic and atraumatic HEAD & SCALP: normocephalic and atraumatic Eye: GENERAL EYE: appearance normal, both eyes and all related structures Chest: COMMONS NORMALS: normal inspection of the chest and normal palpation of entire chest wall CHEST: Yes Symmetrical chest wall rise Resp: COMMON NORMALS: normal respiratory effort, No retractions, No use of accessory muscles and clear to auscultation bilaterally EFFORT & INSPECTION: Yes symmetric chest movement AUSCULTATION: clear to auscultation bilaterally Cardio: COMMON NORMALS: regular rate, regular rhythm, S1 normal heart sound present, S2 normal heart sound present, No gallops present (Cardio), No murmurs present (Cardio), No rub (Cardio) and Peripheral pulses 2+ throughout RATE: regular rate RHYTHM: regular rhythm HEART SOUNDS: S1 normal heart sound present and S2 normal heart sound present PERIPHERAL PULSES: Peripheral pulses 2+ throughout GI: COMMON NORMALS: Normal to inspection, nondistended, normoactive bowel sounds present, Soft to palpation, non-tender, No hepatosplenomegaly present and no masses PALPATION: Yes Soft to palpation and Yes No hepatosplenomegaly present RECTAL EXAM: Yes deferred OTHER: Hypoactive bowel sounds Extremity: COMMON NORMALS: no clubbing, cyanosis or edema and no pedal edema Neuro: COMMON NORMALS: patient oriented x3 Discharge Data Studies Completed and Pending Completed Studies During Hospitalization Category Date Time Status CT abdomen pelvis w con* [id number] Stat Cat Scan 07/07/22 17:48 Completed XR chest 1V portable [id number] Stat Exams 07/07/22 20:12 Completed Radiology Impressions Abdomen/Pelvis CT 07/07/22 17:48 IMPRESSION: 1. Long segment of narrowed mid small bowel with wall thickening. This likely represents infectious versus inflammatory enteritis and may be causing low-grade partial obstruction. 2. Cholelithiasis. COMMENTS: Consistent with the [employer]'s Incidental Findings Committee white paper (J Am Diane Radiol 2018): Any incidental renal lesion less than 1 cm or classified as too small to characterize, or any incidental cystic renal lesion characterized as simple-appearing, is likely benign. No follow-up imaging is recommended for these lesions per consensus recommendations based on imaging criteria. Chest X-Ray 07/07/22 20:12 IMPRESSION: Gastric tube in the mid stomach. Laboratory Results WBC 9.0 10^3/uL (4.0-10.0) 07/08/22 04:37 RBC 4.95 10^6/uL (4.1-5.3) 07/08/22 04:37 Hgb 14.5 g/dL (11.7-16.6) 07/08/22 04:37 Hct 44.5 % (42.0-52.0) 07/08/22 04:37 MCV 89.9 fl (80-94) 07/08/22 04:37 MCH 29.3 pg (28.0-34.0) 07/08/22 04:37 MCHC 32.6 g/dL (30.0-36.0) 07/08/22 04:37 RDW 12.4 % (12.1-15.1) 07/08/22 04:37 Plt Count 194 10^3/cmm (130-400) 07/08/22 04:37 MPV 11.0 fL (7.4-10.4) H 07/08/22 04:37 Neut % (Auto) 72.3 % 07/08/22 04:37 Lymph % (Auto) 19.0 % 07/08/22 04:37 [place] % (Auto) 7.3 % 07/08/22 04:37 Eos % (Auto) 0.9 % 07/08/22 04:37 Baso % (Auto) 0.3 % 07/08/22 04:37 Neut # (Auto) 6.53 10^3/uL (1.8-7.7) 07/08/22 04:37 Lymph # (Auto) 1.7 10^3/uL (0.8-4.8) 07/08/22 04:37 [place]ress # (Auto) 0.7 10^3/uL (0.2-0.9) 07/08/22 04:37 Eos # (Auto) 0.1 10^3/uL (0.0-0.8) 07/08/22 04:37 Baso # (Auto) 0.0 10^3/uL (0.0-0.1) 07/08/22 04:37 Nucleated RBC % (auto) 0 % 07/08/22 04:37 Nucleated RBCs # 0.0 /100WBC 07/08/22 04:37 D-Dimer 2.17 ug/mIFEU (0-0.59) H 07/07/22 16:55 Sodium 135 mmol/L (136-145) L 07/08/22 04:37 Potassium 3.5 mmol/L (3.5-5.1) 07/08/22 04:37 Chloride 102 mmol/L (98-107) 07/08/22 04:37 Carbon Dioxide 25 mmol/L (22-29) 07/08/22 04:37 Anion Gap 11.5 (5-19) 07/08/22 04:37 BUN 9 mg/dL (8-23) 07/08/22 04:37 Creatinine 0.9 mg/dL (0.7-1.2) 07/08/22 04:37 GFR Calculation Not Reportable 07/08/22 04:37 Glucose 110 mg/dL (65-115) 07/08/22 04:37 Calculated Osmolality 279 mOsm/kg (285-295) L 07/08/22 04:37 Calcium 8.6 mg/dL (8.5-10.5) 07/08/22 04:37 Phosphorus 3.2 mg/dL (2.5-4.5) 07/08/22 04:37 Magnesium 2.1 mg/dL (1.7-2.3) 07/08/22 04:37 Total Bilirubin 0.9 mg/dL (0.15-1.2) 07/07/22 16:55 AST 21 U/L (0-40) 07/07/22 16:55 ALT 26 U/L (0-41) 07/07/22 16:55 Alkaline Phosphatase 82 U/L (40-130) 07/07/22 16:55 C-Reactive Protein 3.7 mg/L (0.0-4.9) 07/08/22 04:37 Total Protein 7.2 g/dL (6.6-8.7) 07/07/22 16:55 Albumin 4.2 g/dL (3.5-5.2) 07/07/22 16:55 Globulin 3.0 g/dL (1.3-4.6) 07/07/22 16:55 Lipase 42 U/L (13-60) 07/07/22 16:55 Procalcitonin 0.07 ng/mL (0-0.5) 07/07/22 16:55 Urine Color Yellow (Yellow) 07/07/22 18:00 Urine Appearance Hazy (CLEAR) A 07/07/22 18:00 Urine pH 7 (5-7) 07/07/22 18:00 Ur Specific [place] 1.010 (1.005-1.030) 07/07/22 18:00 Urine Protein 1+ (Negative) H 07/07/22 18:00 Urine Glucose (UA) Norm (Normal) 07/07/22 18:00 Urine Ketones Negative (Negative) 07/07/22 18:00 Urine Blood Neg (Negative) 07/07/22 18:00 Urine Nitrate Negative (Negative) 07/07/22 18:00 Urine Bilirubin Neg (Negative) 07/07/22 18:00 Urine Urobilinogen Neg mg/dL (Negative) 07/07/22 18:00 Ur Leukocyte Esterase Negative (Negative) 07/07/22 18:00 Urine RBC None /hpf (0-2) 07/07/22 18:00 Urine WBC None /hpf (0-5) 07/07/22 18:00 Ur Squamous Epith Cells None /hpf (0-5) 07/07/22 18:00 Amorphous Sediment 1+ /hpf 07/07/22 18:00 Urine Bacteria None /hpf (NONE) 07/07/22 18:00 Urine Mucus 1+ /hpf 07/07/22 18:00 Vitals Last Vital Signs Temp 98.6 F 07/09/22 17:25 Pulse 78 07/09/22 17:25 Resp 16 07/09/22 17:25 BP 147/83 07/09/22 17:25 Pulse Ox 98 07/09/22 17:25 O2 Del Method 07/09/22 15:40 Discharge Plan Discharge Patient Disposition: Home Condition: Stable Prescriptions: New metronidazole 500 mg tablet 500 mg PO BID Qty: 10 0RF ciprofloxacin HCl 500 mg tablet 500 mg PO BID Qty: 10 0RF Continued Vitamin D3 25 mcg (1,000 unit) Capsule 25 mcg PO DAILY Fish Oil 1,200 (144-216) mg Capsule 1 cap PO DAILY Probiotic 10 billion cell Capsule 10,000 mmu cells PO DAILY Discharge Orders: Discharge Order (Routine); Ordered 07/09/22 Ordered By: Morgan Aleman Referrals: Marino Balderas DO [Primary Care Provider] - 07/16/22 10:00 am ( ) Patient Instructions: Ciprofloxacin (By mouth), Metronidazole (By mouth), Enteritis (DC), Opioid Safety, Pain Management Discharge Attestations Time Spent in Discharge Care*: greater than 30 min Quality Metrics Clinical Quality Measures [ No reported AMI, CVA or VTE this stay] Coding Level of Care Code Acute Chg FW DC note Exam Comprehensive Diagnoses Small bowel obstruction K56.609 Enteritis K52.9
== END 2022-07-09 17:00 | disposition home or self-care (01) | DRG 390 ==
LOC: ER 19:51 → MEDSURG 20:17
PROVIDERS: Emergency Medicine; Admitting Provider Internal Medicine; Emergency Provider Emergency Medicine; PCP Emergency Medicine Emergency Medical Services; Visit Provider Internal Medicine
DX: K56.609 Unspecified intestinal obstruction, unspecified as to partial versus complete obstruction (principal); K52.9 Noninfective gastroenteritis and colitis, unspecified; K59.09 Other constipation; K44.9 Diaphragmatic hernia without obstruction or gangrene; K80.20 Calculus of gallbladder without cholecystitis without obstruction; E86.0 Dehydration
CPT/HCPCS: 36415; 71045; 74177; 80048; 80053; 81001; 83690; 83735; 84100; 84145; 85025; 85378; 86140; 94640; 96365; 96367; 96372; 99285; C9113; J0744; J3486; J3490; J7030; J7042; Q9967

== ENCOUNTER 2022-09-26 13:25 | Emergency (ER) | payer OTHER, SELFPAY ==
[2022-09-26 13:28] VITALS: BP 148/77; PULSE 72; RESP 14; TEMP 36.6; O2SAT 96
--- NOTE | 2022-09-26 13:55 | CT_ITS ---
WS: [id number] CT HEAD TECHNIQUE: Noncontrast CT of the head obtained from the skullbase to the vertex. CLINICAL INFORMATION: confusion COMPARISON: None. DLP: 1193.[address] scans at [facility] use at least one of these dose optimization techniques: automated e xposure control; mA and/or kV adjustment per patient size (includes targeted exams where dose is matc hed to clinical indication); or iterative reconstruction. FINDINGS: No evidence of intracranial hemorrhage or mass effect. Ventricular system and basal cisterns are luna nt. Mild small vessel changes with moderate parenchymal volume loss. No extra-axial fluid collections . No evidence of mass or mass effect. Vascular calcification. Prominent ventricles mainly on the basi s of atrophy. No transependymal edema. Moderate atrophy anterior temporal lobes and hippocampal forma tions. Paranasal sinuses and mastoid air cells are well aerated. .Normal visualized soft tissues. Normal pos terior nasopharynx. CT/CT head wo con* [id number] IMPRESSION: 1. No evidence of intracranial hemorrhage or mass effect. 2. Mild small vessel changes. Moderate parenchymal volume loss. 3. Moderate atrophy anterior temporal lobes and hippocampal formations 4. No acute intracranial findings.
[2022-09-26 14:38] LABS: Basophils % 0.3 %; Eosinophils # 0.1 10^3/uL (0.0-0.8); Eosinophils % 1.3 %; Hematocrit 44.8 % (42.0-52.0); Hemoglobin 14.6 g/dL (11.7-16.6); Lymphocytes # 1.7 10^3/uL (0.8-4.8); Mean Corpuscular HGB Conc 32.6 g/dL (30.0-36.0); Mean Corpuscular Hemoglobin 29.3 pg (28.0-34.0); Mean Corpuscular Volume 89.8 fl (80-94); Mean Platelet Volume 10.4 fL (7.4-10.4); Monocytes # 0.5 10^3/uL (0.2-0.9); Monocytes % 8.8 %; Neutrophils # 3.81 10^3/uL (1.8-7.7); Neutrophils % 62.4 %; Nucleated Red Blood Cells % 0 %; Platelet Count 225 10^3/cmm (130-400); Red Blood Count 4.99 10^6/uL (4.1-5.3); Red Cell Distribution Width 12.9 % (12.1-15.1); White Blood Count 6.1 10^3/uL (4.0-10.0)
[2022-09-26 14:55] LABS: Alanine Aminotransferase 22 U/L (0-41); Albumin Level 3.7 g/dL (3.5-5.2); Alkaline Phosphatase 63 U/L (40-130); Anion Gap 11.2 (5-19); Aspartate Amino Transferase 21 U/L (0-40); Blood Urea Nitrogen 7 mg/dL (8-23); Calcium 8.8 mg/dL (8.5-10.5); Carbon Dioxide 30 mmol/L (22-29); Chloride 105 mmol/L (98-107); Globulin 2.3 g/dL (1.3-4.6); Glucose 96 mg/dL (65-115); Osmolality Calculated 292 mOsm/kg (285-295); Potassium 4.2 mmol/L (3.5-5.1); Sodium 142 mmol/L (136-145); Total Bilirubin 0.6 mg/dL (0.15-1.2)
[2022-09-26 15:27] LABS: Add Urine Microscopic? YES; Bilirubin Urine Neg (Negative); Blood Urine Trace (Negative); Glucose Urine UA Norm (Normal); Ketones Urine Negative (Negative); Leukocyte Esterase Urine Negative (Negative); Nitrate Urine Negative (Negative); Protein Urine Neg (Negative); Specific Gravity, Urine 1.015 (1.005-1.030); Urine Appearance Clear (CLEAR); Urine Color Yellow (Yellow); Urobilinogen Urine Neg (Negative); pH Urine 7 (5-7)
[2022-09-26 15:28] LABS: Add Urine Culture? No; Amorphous Sediment Urine 1+ /hpf; RBC Urine RARE /hpf (0-2)
--- NOTE | 2022-09-26 16:55 | ED_ITS ---
Documented by User: GEORGINA Oneal 09/26/22 17:01 HPI - Altered Mental Status General: Chief Complaint: Altered Mental Status Stated Complaint: Sent for symptoms of dementia Time Seen by Provider: 09/26/22 13:42 History of Present Illness: Patient is in today for concerns of dementia. Patient's spouse reports that since approximately July he has been having forgetfulness, sometimes not recognizing her, sometimes seeing people that are not there. She reports that last night was the first time he actually became agitated with her because he did not recognize her. She reports that the primary care provider advised him to come in here to be evaluated. Review of Systems Const: Denies: fever(s), chills or body aches Eyes: Denies: change in vision or blurry vision ENMT: Denies: throat pain Card: Denies: chest pain, palpitations, irregular heart rhythm, lightheade dness or syncope Resp: Denies: dyspnea, productive cough or non-productive cough GI: Denies: abdominal pain, nausea or vomiting : Denies: flank pain, dysuria, urinary frequency, urinary urgency or urinary hesitancy Musc: Denies: neck pain or back pain Neuro: Reports: behavioral changes; Denies: headache(s), numbness in extremities or weakness in extremities PFSH ED PFSH: Medical History Enteritis Hiatal hernia Small bowel obstruction Surgical History No pertinent past surgical history Family History Denies family history of CAD (coronary artery disease) Cancer Social History Smoking and tobacco status: never smoked Alcohol intake: never Physical Exam Const: COMMON NORMALS: no acute distress, healthy appearing and alert ORIENTATION/CONSCIOUSNESS: Yes oriented to person; not oriented to place and not oriented to time HENMT: COMMON NORMALS: normocephalic and atraumatic HEAD & SCALP: normocephalic and atraumatic Eye: GENERAL EYE: appearance normal, both eyes and all related structures Chest: COMMONS NORMALS: normal inspection of the chest and normal palpation of entire chest wall CHEST: Yes Symmetrical chest wall rise Resp: COMMON NORMALS: normal respiratory effort, No retractions, No use of accessory muscles and clear to auscultation bilaterally EFFORT & INSPECTION: Yes symmetric chest movement AUSCULTATION: clear to auscultation bilaterally Cardio: COMMON NORMALS: regular rate, regular rhythm, S1 normal heart sound present, S2 normal heart sound present, No gallops present (Cardio), No murmurs present (Cardio), No rub (Cardio) and Peripheral pulses 2+ throughout RATE: regular rate RHYTHM: regular rhythm HEART SOUNDS: S1 normal heart sound present and S2 normal heart sound present PERIPHERAL PULSES: Peripheral pulses 2+ throughout GI: COMMON NORMALS: Normal to inspection, nondistended, normoactive bowel sounds present, Soft to palpation, non-tender, No hepatosplenomegaly present and no masses PALPATION: Yes Soft to palpation and Yes No hepatosplenomegaly present RECTAL EXAM: Yes deferred Extremity: COMMON NORMALS: no clubbing, cyanosis or edema and no pedal edema Neuro: SENSORIUM/ORIENTATION: Yes alert, Yes oriented to person, No oriented to place, No oriented to time and Yes Orientation impaired Course Vital Signs: Vital signs: Vital Signs Temperature 97.9 F 09/26/22 13:28 Pulse Rate 72 09/26/22 13:28 Respiratory Rate 14 09/26/22 13:28 Blood Pressure 148/77 09/26/22 13:28 Pulse Oximetry 96 09/26/22 13:28 Oxygen Delivery Me thod 09/26/22 13:28 MDM - Altered Mental Status Medical Decision Making Patient is in today for memory and behavior changes since July. Patient is pleasant and cooperative. He is alert and oriented to person only. He is able to list his 's name. He does not know the date or the place. He tries to cover his answers with humor. Mini-Mental examination score is 11 out of [address] head does not show any acute changes however it does show significant atrophy bilateral temporal lobes and hippocampus. Labs are unr emarkable. I discussed all findings with patient and his spouse. We discussed the need for continued follow-up with primary care provider. Spouse is really concerned the patient is not sleeping well at night. We did start medication to help with that and hopefully reduce agitation. Monitor him closely. Follow-up with PCP. Return to the ER for any new or worsening symptoms. Lab Data 09/26/22 14:22 09/26/22 14:[address] 09/26/22 13:55 IMPRESSION: 1. No evidence of intracranial hemorrhage or mass effect. 2. Mild small vessel changes. Moderate parenchymal volume loss. 3. Moderate atrophy anterior temporal lobes and hippocampal formations 4. No acute intracranial findings. Laboratory Results WBC 6.1 10^3/uL (4.0-10.0) 09/26/22 14:22 RBC 4.99 10^6/uL (4.1-5.3) 09/26/22 14:22 Hgb 14.6 g/dL (11.7-16.6) 09/26/22 14:22 Hct 44.8 % (42.0-52.0) 09/26/22 14:22 MCV 89.8 fl (80-94) 09/26/22 14:22 MCH 29.3 pg (28.0-34.0) 09/26/22 14:22 MCHC 32.6 g/dL (30.0-36.0) 09/26/22 14:22 RDW 12.9 % (12.1-15.1) 09/26/22 14:22 Plt Count 225 10^3/cmm (130-400) 09/26/22 14:22 MPV 10.4 fL (7.4-10.4) 09/26/22 14:22 Neut % (Auto) 62.4 % 09/26/22 14:22 Lymph % (Auto) 27.0 % 09/26/22 14:22 [place] % (Auto) 8.8 % 09/26/22 14:22 Eos % (Auto) 1.3 % 09/26/22 14:22 Baso % (Auto) 0.3 % 09/26/22 14:22 Neut # (Auto) 3.81 10^3/uL (1.8-7.7) 09/26/22 14:22 Lymph # (Auto) 1.7 10^3/uL (0.8-4.8) 09/26/22 14:22 [place] # (Auto) 0.5 10^3/uL (0.2-0.9) 09/26/22 14:22 Eos # (Auto) 0.1 10^3/uL (0.0-0.8) 09/26/22 14:22 Baso # (Auto) 0.0 10^3/uL (0.0-0.1) 09/26/22 14:22 Nucleated RBC % (auto) 0 % 09/26/22 14:22 Nucleated RBCs # 0.0 /100WBC 09/26/22 14:22 Sodium 142 mmol/L (136-145) 09/26/22 14:22 Potassium 4.2 mmol/L (3.5-5.1) 09/26/22 14:22 Chloride 105 mmol/L (98-107) 09/26/22 14:22 Carbon Dioxide 30 mmol/L (22-29) H 09/26/22 14:22 Anion Gap 11.2 (5-19) 09/26/22 14:22 BUN 7 mg/dL (8-23) L 09/26/22 14:22 Creatinine 1.1 mg/dL (0.7-1.2) 09/26/22 14:22 GFR Calculation Not Reportable 09/26/22 14:22 Glucose 96 mg/dL (65-115) 09/26/22 14:22 Calculated Osmolality 292 mOsm/kg (285-295) 09/26/22 14:22 Calcium 8.8 mg/dL (8.5-10.5) 09/26/22 14:22 Total Bilirubin 0.6 mg/dL (0.15-1.2) 09/26/22 14:22 AST 21 U/L (0-40) 09/26/22 14:22 ALT 22 U/L (0-41) 09/26/22 14:22 Alkaline Phosphatase 63 U/L (40-130) 09/26/22 14:22 Total Protein 6.0 g/dL (6.6-8.7) L 09/26/22 14:22 Albumin 3.7 g/dL (3.5-5.2) 09/26/22 14:22 Globulin 2.3 g/dL (1.3-4.6) 09/26/22 14:22 Urine Color Yellow (Yellow) 09/26/22 14:54 Urine Appearance Clear (CLEAR) 09/26/22 14:54 Urine pH 7 (5-7) 09/26/22 14:54 Ur Specific [place] 1.015 (1.005-1.030) 09/26/22 14:54 Urine Protein Neg (Negative) 09/26/22 14:54 Urine Glucose (UA) Norm (Normal) 09/26/22 14:54 Urine Ketones Negative (Negative) 09/26/22 14:54 Urine Blood Trace (Negative) H 09/26/22 14:54 Urine Nitrate Negative (Negative) 09/26/22 14:54 Urine Bilirubin Neg (Negative) 09/26/22 14:54 Urine Urobilinogen Neg mg/dL (Negative) 09/26/22 14:54 Ur Leukocyte Esterase Negative (Negative) 09/26/22 14:54 Urine RBC Rare /hpf (0-2) 09/26/22 14:54 Urine WBC None /hpf (0-5) 09/26/22 14:54 Ur Squamous Epith Cells None /hpf (0-5) 09/26/22 14:54 Amorphous Sediment 1+ /hpf 09/26/22 14:54 Urine Bacteria None /hpf (NONE) 09/26/22 14:54 Discharge Plan Discharge Patient Disposition: Home Clinical Impression: Altered mental status Condition: Stable Prescriptions: New trazodone 50 mg tablet 25 mg PO DAILY PRN (Reason: insomnia) Qty: 5 0RF No Action cholecalciferol (vitamin D3) [Vitamin D3] 25 mcg (1,000 unit) Capsule 25 mcg PO DAILY omega 1-tav-vgz-fish oil [Fish Oil] 1,200 (144-216) mg Capsule 1 cap PO DAILY Probiotic 10 billion cell Capsule 10,000 mmu cells PO DAILY Discharge Orders: Discharge ED (Routine); Ordered 09/26/22 Ordered By: Janeth Hou Referrals: Marino Balderas DO [Primary Care Provider] - Discharge Diet: Usual diet Discharge Activity: Resume usual activity Patient Instructions: Dementia (ED) Activity Restrictions/Additional Instructions: I did not see any acute findings on the CAT scan that need immediate intervention. Lab work does not show any indication of acute bacterial infection at this time. The changes seen on the CAT scan appear to be chronic atrophy from aging possibly dementia. I will prescribe trazodone half a tablet once every night as needed for sleeping. Monitor the patient closely for any signs of worsening depression or thoughts of harming himself. Follow-up with your primary care provider for ongoing evaluation and management. Return to the ER as needed for new or worsening symptoms Coding Level of Care Code ED Client Care Manager for Chg Fwd Documented by User: Bryn Damon DO 09/26/22 17:07 HPI - Altered Mental Status General: Chief Complaint: Altered Mental Status Stated Complaint: DrNj Sent for symptoms of dementia Time Seen by Provider: 09/26/22 13:42 PFSH ED PFSH: Medical History Enteritis Hiatal hernia Small bowel obstruction Surgical History No pertinent past surgical history Family History Denies family history of CAD (coronary artery disease) Cancer Social History Smoking and tobacco status: never smoked Alcohol intake: never Course Vital Signs: Vital signs: Vital Signs Temperature 97.9 F 09/26/22 13:28 Pulse Rate 72 09/26/22 13:28 Respiratory Rate 14 09/26/22 13:28 Blood Pressure 148/77 09/26/22 13:28 Pulse Oximetry 96 09/26/22 13:28 Oxygen Delivery Me thod 09/26/22 13:28 MDM - Altered Mental Status Medical Decision Making Patient is in today for memory and behavior changes since July. Patient is pleasant and cooperative. He is alert and oriented to person only. He is able to list his 's name. He does not know the date or the place. He tries to cover his answers with humor. Mini-Mental examination score is 11 out of [address] head does not show any acute changes however it does show significant atrophy bilateral temporal lobes and hippocampus. Labs are unremarkable. I discussed all findings with patient and his spouse. We discussed the need for continued follow-up with primary care provider. Spouse is really concerned the patient is not sleeping well at night. We did start medication to help with that and hopefully reduce agitation. Monitor him closely. Follow-up with PCP. Return to the ER for any new or worsening symptoms. Chart reviewed and patient discussed with midlevel. Agree with assessment and plan. Lab Data 09/26/22 14:22 09/26/22 14:[address] 09/26/22 13:55 IMPRESSION: 1. No evidence of intracranial hemorrhage or mass effect. 2. Mild small vessel changes. Moderate parenchymal volume loss. 3. Moderate atrophy anterior temporal lobes and hippocampal formations 4. No acute intracranial findings. Laboratory Results WBC 6.1 10^3/uL (4.0-10.0) 09/26/22 14:22 RBC 4.99 10^6/uL (4.1-5.3) 09/26/22 14:22 Hgb 14.6 g/dL (11.7-16.6) 09/26/22 14:22 Hct 44.8 % (42.0-52.0) 09/26/22 14:22 MCV 89.8 fl (80-94) 09/26/22 14:22 MCH 29.3 pg (28.0-34.0) 09/26/22 14:22 MCHC 32.6 g/dL (30.0-36.0) 09/26/22 14:22 RDW 12.9 % (12.1-15.1) 09/26/22 14:22 Plt Count 225 10^3/cmm (130-400) 09/26/22 14:22 MPV 10.4 fL (7.4-10.4) 09/26/22 14:22 Neut % (Auto) 62.4 % 09/26/22 14:22 Lymph % (Auto) 27.0 % 09/26/22 14:22 [place] % (Auto) 8.8 % 09/26/22 14:22 Eos % (Auto) 1.3 % 09/26/22 14:22 Baso % (Auto) 0.3 % 09/26/22 14:22 Neut # (Auto) 3.81 10^3/uL (1.8-7.7) 09/26/22 14:22 Lymph # (Auto) 1.7 10^3/uL (0.8-4.8) 09/26/22 14:22 [place] # (Auto) 0.5 10^3/uL (0.2-0.9) 09/26/22 14:22 Eos # (Auto) 0.1 10^3/uL (0.0-0.8) 09/26/22 14:22 Baso # (Auto) 0.0 10^3/uL (0.0-0.1) 09/26/22 14:22 Nucleated RBC % (auto) 0 % 09/26/22 14:22 Nucleated RBCs # 0.0 /100WBC 09/26/22 14:22 Sodium 142 mmol/L (136-145) 09/26/22 14:22 Potassium 4.2 mmol/L (3.5-5.1) 09/26/22 14:22 Chloride 105 mmol/L (98-107) 09/26/22 14:22 Carbon Dioxide 30 mmol/L (22-29) H 09/26/22 14:22 Anion Gap 11.2 (5-19) 09/26/22 14:22 BUN 7 mg/dL (8-23) L 09/26/22 14:22 Creatinine 1.1 mg/dL (0.7-1.2) 09/26/22 14:22 GFR Calculation Not Reportable 09/26/22 14:22 Glucose 96 mg/dL (65-115) 09/26/22 14:22 Calculated Osmolality 292 mOsm/kg (285-295) 09/26/22 14:22 Calcium 8.8 mg/dL (8.5-10.5) 09/26/22 14:22 Total Bilirubin 0.6 mg/dL (0.15-1.2) 09/26/22 14:22 AST 21 U/L (0-40) 09/26/22 14:22 ALT 22 U/L (0-41) 09/26/22 14:22 Alkaline Phosphatase 63 U/L (40-130) 09/26/22 14:22 Total Protein 6.0 g/dL (6.6-8.7) L 09/26/22 14:22 Albumin 3.7 g/dL (3.5-5.2) 09/26/22 14:22 Globulin 2.3 g/dL (1.3-4.6) 09/26/22 14:22 Urine Color Yellow (Yellow) 09/26/22 14:54 Urine Appearance Clear (CLEAR) 09/26/22 14:54 Urine pH 7 (5-7) 09/26/22 14:54 Ur Specific [place] 1.015 (1.005-1.030) 09/26/22 14:54 Urine Protein Neg (Negative) 09/26/22 14:54 Urine Glucose (UA) Norm (Normal) 09/26/22 14:54 Urine Ketones Negative (Negative) 09/26/22 14:54 Urine Blood Trace (Negative) H 09/26/22 14:54 Urine Nitrate Negative (Negative) 09/26/22 14:54 Urine Bilirubin Neg (Negative) 09/26/22 14:54 Urine Urobilinogen Neg mg/dL (Negative) 09/26/22 14:54 Ur Leukocyte Esterase Negative (Negative) 09/26/22 14:54 Urine RBC Rare /hpf (0-2) 09/26/22 14:54 Urine WBC None /hpf (0-5) 09/26/22 14:54 Ur Squamous Epith Cells None /hpf (0-5) 09/26/22 14:54 Amorphous Sediment 1+ /hpf 09/26/22 14:54 Urine Bacteria None /hpf (NONE) 09/26/22 14:54 Discharge Plan Discharge Patient Disposition: Home Clinical Impression: Altered mental status Condition: Stable Prescriptions: New trazodone 50 mg tablet 25 mg PO DAILY PRN (Reason: insomnia) Qty: 5 0RF No Action cholecalciferol (vitamin D3) [Vitamin D3] 25 mcg (1,000 unit) Capsule 25 mcg PO DAILY omega 0-vhs-dhy-fish oil [Fish Oil] 1,200 (144-216) mg Capsule 1 cap PO DAILY Probiotic 10 billion cell Capsule 10,000 mmu cells PO DAILY Discharge Orders: Discharge ED (Routine); Ordered 09/26/22 Ordered By: Janeth Hou Referrals: Marino Balderas DO [Primary Care Provider] - Discharge Diet: Usual diet Discharge Activity: Resume usual activity Patient Instructions: Dementia (ED) Activity Restrictions/Additional Instructions: I did not see any acute findings on the CAT scan that need immediate intervention. Lab work does not show any indication of acute bacterial infection at this time. The changes seen on the CAT scan appear to be chronic atrophy from aging possibly dementia. I will prescribe trazodone half a tablet once every night as needed for sleeping. Monitor the patient closely for any signs of worsening depression or thoughts of harming himself. Follow-up with your primary care provider for ongoing evaluation and management. Return to the ER as needed for new or worsening symptoms Coding Level of Care Code ED Client Care Manager for Pato Goldsmith
== END 2022-09-26 15:44 | disposition home or self-care (01) ==
PROVIDERS: Emergency Provider Nurse Practitioner Family; PCP Emergency Medicine Emergency Medical Services
DX: R41.82 Altered mental status, unspecified (principal)
CPT/HCPCS: 36415; 70450; 80053; 81001; 85025; 99284

== ENCOUNTER 2022-10-29 21:51 | Emergency (ER) | payer OTHER, SELFPAY ==
--- NOTE | 2022-10-29 21:55 | XRR_ITS ---
PROCEDURE INFORMATION: Exam: XR Chest Exam date and time: 10/29/2022 10:13 PM Age: 77 years old Clinical indication: Other: AMS TECHNIQUE: Imaging protocol: Radiologic exam of the chest. Views: 1 view. COMPARISON: CR XR chest 1V portable [id number] 07/07/2022 8:40 PM FINDINGS: Lungs: Unremarkable. No consolidation. Pleural spaces: Unremarkable. No pleural effusion. No pneumothorax. Heart/Mediastinum: Unremarkable. No cardiomegaly. Bones/joints: Unremarkable. XR/XR chest 1V portable [id number] IMPRESSION: No acute findings.
[2022-10-29 21:58] VITALS: BP 156/85; PULSE 66; RESP 15; TEMP 36.4; O2SAT 99; BMI 22.9
[2022-10-29 22:33] LABS: Basophils # 0.1 10^3/uL (0.0-0.1); Basophils % 0.6 %; Eosinophils # 0.1 10^3/uL (0.0-0.8); Eosinophils % 1.3 %; Hematocrit 45.6 % (42.0-52.0); Hemoglobin 14.9 g/dL (11.7-16.6); Lymphocytes # 2.3 10^3/uL (0.8-4.8); Mean Corpuscular HGB Conc 32.7 g/dL (30.0-36.0); Mean Corpuscular Hemoglobin 29.3 pg (28.0-34.0); Mean Corpuscular Volume 89.6 fl (80-94); Mean Platelet Volume 10.3 fL (7.4-10.4); Monocytes # 0.6 10^3/uL (0.2-0.9); Monocytes % 7.3 %; Neutrophils # 4.73 10^3/uL (1.8-7.7); Neutrophils % 60.5 %; Nucleated Red Blood Cells % 0 %; Platelet Count 224 10^3/cmm (130-400); Red Blood Count 5.09 10^6/uL (4.1-5.3); Red Cell Distribution Width 12.6 % (12.1-15.1); White Blood Count 7.8 10^3/uL (4.0-10.0)
--- NOTE | 2022-10-29 22:46 | CTR_ITS ---
PROCEDURE INFORMATION: Exam: CT Head Without Contrast Exam date and time: 10/29/2022 11:24 PM Age: 77 years old Clinical indication: Altered mental status/memory loss; Confusion or disorientation; Patient HX: Per , worsening confusion with visual and auditory hallucinations. History of dementia. ; Additional info: AMS TECHNIQUE: Imaging protocol: Computed tomography of the head without contrast. Radiation optimization: All CT scans at this facility use at least one of these dose optimization techniques: automated exposure control; mA and/or kV adjustment per patient size (includes targeted exams where dose is matched to clinical indication); or iterative reconstruction. REPORTING DATA: Count of CT and Cardiac NM exams in prior 12 months: This patient has received 2 known CTs and 0 known cardiac nuclear medicine studies in the 12 months prior to the current study. COMPARISON: CT head wo con* [id number] 09/26/2022 2:35 PM RADIATION DOSE METRICS: Total DLP (mGy-cm): 2448.75 FINDINGS: Brain: There is moderate cortical atrophy. Low-density changes in the white matter are consistent with nonspecific small vessel chronic ischemic change. There is no intracranial mass, hemorrhage or edema. Cerebral ventricles: No ventriculomegaly. Paranasal sinuses: Visualized sinuses are unremarkable. No fluid levels. Mastoid air cells: Visualized mastoid air cells are well aerated. Bones/joints: Unremarkable. No acute fracture. Soft tissues: Unremarkable. CT/CT head wo con* [id number] IMPRESSION: No acute intracranial finding. No significant change from 09/26/2022
[2022-10-29 22:48] LABS: Ammonia 16 umol/L (16-60)
[2022-10-29 22:49] LABS: Alanine Aminotransferase 22 U/L (0-41); Albumin Level 3.7 g/dL (3.5-5.2); Alkaline Phosphatase 58 U/L (40-130); Anion Gap 10.2 (5-19); Aspartate Amino Transferase 19 U/L (0-40); Blood Urea Nitrogen 10 mg/dL (8-23); Calcium 8.9 mg/dL (8.5-10.5); Carbon Dioxide 31 mmol/L (22-29); Chloride 105 mmol/L (98-107); Globulin 2.5 g/dL (1.3-4.6); Glucose 101 mg/dL (65-115); Osmolality Calculated 293 mOsm/kg (285-295); Potassium 4.2 mmol/L (3.5-5.1); Sodium 142 mmol/L (136-145); Total Bilirubin 0.4 mg/dL (0.15-1.2); Total Protein 6.2 g/dL (6.6-8.7)
[2022-10-29 22:53] LABS: Alcohol Level < 10 mg/dL (0-10)
--- NOTE | 2022-10-29 23:18 | ECG_ITS ---
[facility] Test Date: 2022-10-29 Pat Name: Antoine Driver Department: Room: Gender: Male Manager Order: : [id number] Requested By: Paris Dean Order Number: [id number] Eileen MD: Susanne Hilton M.D. Measurements Intervals [place] Rate: 62 P: 67 HI: 207 QRS: 41 QRSD: 82 T: 66 QT: 383 QTc: 390 Interpretive Statements SINUS RHYTHM Compared to ECG 12/09/2017 17:42:58 Sinus bradycardia no longer present Elderly pleasant changes in the anterolateral leads Electronically Signed On 10-30-2022 0:35:30 CDT by Susanne Hilton M.D. [id number]
--- NOTE | 2022-10-29 23:21 | W.ED.GENADLT ---
HPI - General Adult General: Chief complaint: General Medical Stated complaint: Confused\Hallucination Time Seen by Provider: 10/29/22 22:29 Source: patient Mode of arrival: ambulatory Limitations: no limitations History of Present Illness: 77-year-old male who has a history of advanced dementia states that tonight he been having some increased confusion he is having hallucinations where he thought he was seeing people. She states he has had hallucinations in the past this is not new for him he has not been violent denies any suicidal ideation he complained of some chest pain early this morning currently patient has no complaints he denies any pain he is alert to self disoriented otherwise. Associated symptoms: Reports confusion Review of Systems General: Reports: ROS unobtainable due to mental status Neuro: Reports: confusion Psych: Reports: visual hallucinations PFSH ED PFSH: Medical History Enteritis Hiatal hernia Small bowel obstruction Surgical History No pertinent past surgical history Family History Denies family history of CAD (coronary artery disease) Cancer Social History Smoking and tobacco status: never smoked Alcohol intake: never Physical Exam Const: COMMON NORMALS: no acute distress, healthy appearing and alert; negative for patient oriented x3 ORIENTATION/CONSCIOUSNESS: Yes oriented to person; not oriented to place and not oriented to time HENMT: COMMON NORMALS: normocephalic and atraumatic HEAD & SCALP: normocephalic and atraumatic Eye: COMMON NORMALS: Equal, round and reactive pupils present and EOMs intact bilaterally PUPIL: Yes Equal, round and reactive pupils present Neck/C-Spine: COMMON NORMALS: full ROM and supple Chest: COMMONS NORMALS: normal inspection of the chest and normal palpation of entire chest wall Resp: COMMON NORMALS: normal respiratory effort, No retractions, No use of accessory muscles and clear to auscultation bilaterally AUSCULTATION: clear to auscultation bilaterally Cardio: COMMON NORMALS: regular rate, regular rhythm and No murmurs present (Cardio) RATE: regular rate RHYTHM: regular rhythm GI: COMMON NORMALS: Normal to inspection, nondistended, normoactive bowel sounds present, Soft to palpation, non-tender and no masses PALPATION: Yes Soft to palpation Extremity: COMMON NORMALS: normal to inspection and full ROM Neuro: COMMON NORMALS: moves all extremities and no focal motor deficits; negative for patient oriented x3 SENSORIUM/ORIENTATION: Yes alert, Yes oriented to person, No oriented to place and No oriented to time Psych: COMMON NORMALS: Normal thought process present and cooperative; negative for mental status grossly normal THOUGHT PROCESS: Normal thought process present Skin: COMMON NORMALS: no rashes or lesions noted and no wounds GENERAL SKIN EXAM: no rashes or lesions noted Course Vital Signs: Vital signs: Vital Signs Temperature 97.6 F 10/29/22 21:58 Pulse Rate 66 10/29/22 21:58 Respiratory Rate 15 10/29/22 21:58 Blood Pressure 156/85 10/29/22 21:58 Pulse Oximetry 99 10/29/22 21:58 Oxygen Delivery Me thod 10/29/22 21:58 MDM - General Adult Medical Decision Making Patient presents here with dementia. Had some slight confusion he is at his baseline currently his hallucinations has been going from quite some time. No suicidal ideations he has been well-appearing had a long discussion with she would like to go home at this time his head CT blood work is normal he is stable for discharge he is to follow-up with PCP and return if worsening. Lab Data 10/29/22 22:28 10/29/22 22:28 Radiology Impressions Chest X-Ray 10/29/22 21:55 IMPRESSION: No acute findings. Head CT 10/29/22 22:46 IMPRESSION: No acute intracranial finding. No significant change from 09/26/2022 Laboratory Results WBC 7.8 10^3/uL (4.0-10.0) 10/29/22 22:28 RBC 5.09 10^6/uL (4.1-5.3) 10/29/22 22:28 Hgb 14.9 g/dL (11.7-16.6) 10/29/22 22:28 Hct 45.6 % (42.0-52.0) 10/29/22 22:28 MCV 89.6 fl (80-94) 10/29/22 22: MCH 29.3 pg (28.0-34.0) 10/29/22: MCHC 32.7 g/dL (30.0-36.0) 10/29/22: RDW 12.6 % (12.1-15.1) 10/29/22: Plt Count 224 10^3/cmm (130-400) 10/29/22 22: MPV 10.3 fL (7.4-10.4) 10/29/22: Neut % (Auto) 60.5 % 10/29/22: Lymph % (Auto) 30.0 % 10/29/22: [place] % (Auto) 7.3 % 10/29/22: Eos % (Auto) 1.3 % 10/29/22: Baso % (Auto) 0.6 % 10/29/22 Neut # (Auto) 4.73 10^3/uL (1.8-7.7) 10/29/22: Lymph # (Auto) 2.3 10^3/uL (0.8-4.8) 10/29/22: [place] # (Auto) 0.6 10^3/uL (0.2-0.9) 10/29/22: Eos # (Auto) 0.1 10^3/uL (0.0-0.8) 10/29/22: Baso # (Auto) 0.1 10^3/uL (0.0-0.1) 10/29/22: Nucleated RBC % (auto) 0 % 10/29/22: Nucleated RBCs # 0.0 /100WBC 10/29/22 22: Sodium 142 mmol/L (136-145) 10/29/22: Potassium 4.2 mmol/L (3.5-5.1) 10/29/22: Chloride 105 mmol/L (98-107) 10/29/22: Carbon Dioxide 31 mmol/L (22-29) H 10/29/22: Anion Gap 10.2 (5-19) 10/29/22 22: BUN 10 mg/dL (8-23) 10/29/22 22: Creatinine 1.1 mg/dL (0.7-1.2) 10/29/22 22: GFR Calculation Not Reportable 10/29/22 22: Glucose 101 mg/dL (65-115) 10/29/22 22: Calculated Osmolality 293 mOsm/kg (285-295) 10/29/22 22: Calcium 8.9 mg/dL (8.5-10.5) 10/29/22 22: Total Bilirubin 0.4 mg/dL (0.15-1.2) 10/29/22 22: AST 19 U/L (0-40) 10/29/22 22: ALT 22 U/L (0-41) 10/29/22 22: Alkaline Phosphatase 58 U/L (40-130) 10/29/22 22: Ammonia 16 umol/L (16-60) 10/29/22 22: Troponin T Baseline 14 ng/L (0-15) 10/29/22 22: Total Protein 6.2 g/dL (6.6-8.7) L 10/29/22 22: Albumin 3.7 g/dL (3.5-5.2) 10/29/22 22: Globulin 2.5 g/dL (1.3-4.6) 10/29/22 22: Ethyl Alcohol < 10 mg/dL (0-10) 10/29/22 22: EKG Data EKG 1: I personally reviewed and interpreted this EKG as follows: EKG interpretation date: 10/29/22 EKG interpretation time: 23:18 Interpretation: nsr hr [address] or t wave abnormalities qrs 82 qtc 383 Computer generated interpretation: Chest X-Ray 10/29/22 21:55 IMPRESSION: No acute findings. Head CT 10/29/22 22:46 IMPRESSION: No acute intracranial finding. No significant change from 09/26/2022 Discharge Plan Discharge Patient Disposition: Home Clinical Impression: Confusion, Hallucinations Condition: Stable Prescriptions: No Action cholecalciferol (vitamin D3) [Vitamin D3] 25 mcg (1,000 unit) Capsule 25 mcg PO DAILY omega 5-lpz-bvo-fish oil [Fish Oil] 1,200 (144-216) mg Capsule 1 cap PO DAILY Probiotic 10 billion cell Capsule 10,000 mmu cells PO DAILY trazodone 50 mg tablet 25 mg PO DAILY PRN (Reason: insomnia) Qty: 5 0RF Discharge Orders: Discharge ED (Routine); Ordered 10/30/22 Ordered By: Paris Dean Referrals: Marino Balderas, [Primary Care Provider] - Discharge Diet: Advance as tolerated Discharge Activity: Resume usual activity Patient Instructions: Dementia (ED) Coding Level of Care Code ED Marine Steward for Pato Goldsmith
[2022-10-29 23:50] LABS: Troponin(5th) Baseline 14 ng/L (0-15)
[2022-10-30 00:15] LABS: Add Urine Microscopic? NO; Charge for UA Resulting for Rev
[2022-10-30 00:16] VITALS: BP 134/79; RESP 18; O2SAT 98
[2022-10-30 00:30] LABS: Bilirubin Urine Neg (Negative); Blood Urine Neg (Negative); Glucose Urine UA Norm (Normal); Ketones Urine Negative (Negative); Leukocyte Esterase Urine Negative (Negative); Nitrate Urine Negative (Negative); Protein Urine Neg (Negative); Urine Appearance Clear (CLEAR); Urine Color Yellow (Yellow); Urobilinogen Urine Norm (Negative); pH Urine 7 (5-7)
== END 2022-10-30 00:18 | disposition home or self-care (01) ==
PROVIDERS: Emergency Provider Emergency Medicine; PCP Emergency Medicine Emergency Medical Services
DX: R41.0 Disorientation, unspecified (principal); R44.3 Hallucinations, unspecified
CPT/HCPCS: 70450; 71045; 80053; 80307; 81003; 82140; 84484; 85025; 93005; 99285

== ENCOUNTER 2023-05-19 15:48 | Emergency (ER) | payer OTHER, SELFPAY ==
--- NOTE | 2023-05-19 16:01 | ECG_ITS ---
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 Measurements Intervals Sloan Rate: 59 P: 59 CA: 199 QRS: 11 QRSD: 76 T: 67 QT: 382 QTc: 381 Interpretive Statements SINUS BRADYCARDIA SEPTAL MYOCARDIAL INFARCTION , OF INDETERMINATE AGE [40+ ms Q WAVE IN V1/V2] Compared to ECG 10/29/2022 23:18:07 Myocardial infarct finding now present Sinus rhythm no longer present Electronically Signed On 05-19-2023 23:17:40 CDT by Susanne Hilton M.D. [id number]
[2023-05-19 16:03] VITALS: BP 146/75; PULSE 55; RESP 16; TEMP 36.6; O2SAT 98; BMI 22.9
--- NOTE | 2023-05-19 16:18 | USR_ITS ---
PROCEDURE INFORMATION: Exam: US Duplex Left Lower Extremity Veins, Limited Exam date and time: 05/19/2023 5:22 PM Age: 78 years old Clinical indication: Pain; Leg, upper; Left TECHNIQUE: Imaging protocol: Real-time duplex ultrasound of the left extremity with 2-D angel scale, color Doppler flow and spectral waveform analysis including responses to compression and other maneuvers (when performed) with image documentation. Limited exam focused on the left lower extremity veins. COMPARISON: CT abdomen pelvis w con* [id number] 07/07/2022 6:11 PM FINDINGS: Left deep veins: Unremarkable. The common femoral, femoral, proximal profunda femoral, popliteal, posterior tibial and peroneal veins are patent without thrombus. Normal compressibility, augmentation response and Doppler waveforms. Superficial veins: Hypoechoic, occlusive thrombus in the greater saphenous vein, extending from the proximal calf to the mid thigh. Saphenofemoral junction is patent without thrombus. Soft tissues: Unremarkable. US/CV venous duplex [facility] [id number] IMPRESSION: 1. No sonographic evidence of deep vein thrombosis. 2. Hypoechoic, occlusive thrombus in the greater saphenous vein, extending from the proximal calf to the mid thigh.
--- NOTE | 2023-05-19 16:18 | W.ED.EXTPRO ---
HPI - Extremity Problem General: Chief complaint: Extremity Problem,Nontraumatic Stated complaint: left side chest pain Time Seen by Provider: 05/19/23 16:08 History of Present Illness: 78-year-old male brought to emergency room by due to left thigh pain for the past 2 days. Patient described the pain as throbbing sensation with severity of 7 out of 10. It is mostly on the inner aspect of the left thigh. Has any fall or other injury. She also noticed some redness to the area radiating towards the calf area. Patient has any shortness of breath, cough, coughing up blood or vomiting blood. Associated symptoms: Deny chest pain or fever(s) Review of Systems General: Reports: 10 or more systems reviewed and unremarkable except in HPI and below Const: Denies: fever(s), chills, body aches or change in appetite Card: Denies: chest pain, palpitations, irregular heart rhythm, edema, swelling of feet/ankles, lightheadedness, syncope, pre-syncope, dyspnea on exertion or orthopnea Resp: Reports: dyspnea GI: Denies: abdominal pain, nausea or vomiting Musc: Reports: other (Left thigh and leg pain) Elton/Lymph: Denies: easy bruising, easy bleeding, petechiae, purpura, enlarged lymph nodes or tender lymph nodes PFSH ED PFSH: Medical History Enteritis Hiatal hernia Small bowel obstruction Surgical History No pertinent past surgical history Family History Denies family history of CAD (coronary artery disease) Cancer Social History Smoking and tobacco/nicotine status: never used tobacco/nicotine Alcohol intake: never Physical Exam Const: COMMON NORMALS: no acute distress, average body habitus, patient oriented x3, no limitations, healthy appearing, alert and well nourished HENMT: COMMON NORMALS: normocephalic, atraumatic, hearing grossly normal bilaterally, external ears normal, EAC's normal, TM's normal bilaterally, Normal external nose present, Normal nasal mucous membranes and turbinates present, moist oral mucous membranes, oropharynx normal, dentition normal and gingiva normal HEAD & SCALP: normocephalic and atraumatic NOSE: Normal external nose present and Normal nasal mucous membranes and turbinates present EXTERNAL EAR: Yes external ears normal EXTERNAL AUDITORY CANAL: EAC's normal TYMPANIC MEMBRANE: TM's normal bilaterally Neck/C-Spine: COMMON NORMALS: no JVD Chest: COMMONS NORMALS: normal inspection of the chest, normal palpation of entire chest wall, normal inspection of the breasts and normal palpation of the breasts Breast/axilla inspection: Yes normal inspection of the breasts BREAST/AXILLA PALPATION: Yes normal palpation of the breasts Resp: COMMON NORMALS: normal respiratory effort, No retractions, No use of accessory muscles, clear to auscultation bilaterally and percussion normal AUSCULTATION: clear to auscultation bilaterally PERCUSSION: percussion normal Cardio: COMMON NORMALS: no JVD, regular rhythm, S1 normal heart sound present, S2 normal heart sound present, No gallops present (Cardio), No clicks present (Cardio), No murmurs present (Cardio), No rub (Cardio) and Peripheral pulses 2+ throughout RHYTHM: regular rhythm and other HEART SOUNDS: S1 normal heart sound present and S2 normal heart sound present PERIPHERAL PULSES: Peripheral pulses 2+ throughout Extremity: OTHER: Left thigh with area of redness and tenderness mostly on the medial aspect. No palpable cords. No calf tenderness upon palpation area with some diffuse redness but no signs of open wound or laceration. Neuro: COMMON NORMALS: patient oriented x3 SENSORIUM/ORIENTATION: Yes alert Course Consultations: Consultation #1: Discussed patient with Dr. Poon Vital Signs: Vital signs: Vital Signs Temperature 97.9 F 05/19/23 16:03 Pulse Rate 55 L 05/19/23 16:03 Respiratory Rate 16 05/19/23 16:03 Blood Pressure 146/75 05/19/23 16:03 Pulse Oximetry 98 05/19/23 16:03 Oxygen Delivery Me thod Room Air 05/19/23 16:03 MDM - Extremity (Nontraumatic) Medical Decision Making Patient made comfortable emergency room. Patient had ultrasound done ultrasound was reviewed and discussed with patient and . I spoke with Dr. Poon who is on-call for hematology oncology and we both agree that patient should be on Xarelto. Differential Diagnosis Likely herpes zoster, gout, cellulitis, superficial thrombophlebitis, deep venous thrombosis of upper extremity, lower extremity edema and deep vein thrombosis of lower extremity Lab Data Radiology Impressions Venous Duplex 05/19/23 16:18 IMPRESSION: 1. No sonographic evidence of deep vein thrombosis. 2. Hypoechoic, occlusive thrombus in the greater saphenous vein, extending from the proximal calf to the mid thigh. XR interpretation done by ED provider, pending radiology final review EKG Data EKG 1: Interpretation: Sinus rhythm rate of [address] ST changes. Discharge Plan Discharge Patient Disposition: Home Clinical Impression: Superficial thrombophlebitis Condition: Stable Prescriptions: New rivaroxaban 10 mg tablet 10 mg PO DAILY 35 Days Qty: 45 0RF No Action cholecalciferol (vitamin D3) [Vitamin D3] 25 mcg (1,000 unit) Capsule 25 mcg PO DAILY omega 1-ytn-gci-fish oil [Fish Oil] 1,200 (144-216) mg Capsule 1 cap PO DAILY Probiotic 10 billion cell Capsule 10,000 mmu cells PO DAILY trazodone 50 mg tablet 25 mg PO DAILY PRN (Reason: insomnia) Qty: 5 0RF Discharge Orders: Discharge ED (Routine); Ordered 05/19/23 Ordered By: Rahul Davis Referrals: Marino Balderas DO [Primary Care Provider] - Timothy Poon MD [Hospitalist] - 4-7 days Discharge Diet: Advance as tolerated Discharge Activity: Resume usual activity Patient Instructions: Opioid Safety, Pain Management Coding Level of Care Code ED Director Of Resource Development for Pato Goldsmith
[2023-05-19] MEDS: rivaroxaban 10 mg Tablet PO (18:53)
== END 2023-05-19 19:04 | disposition home or self-care (01) ==
PROVIDERS: Emergency Provider Family Medicine; PCP Emergency Medicine Emergency Medical Services
DX: I80.02 Phlebitis and thrombophlebitis of superficial vessels of left lower extremity (principal)
CPT/HCPCS: 93005; 93971; 99284

== ENCOUNTER 2023-06-19 14:30 | Oncology outpatient (recurring) (ONCR) | payer OTHER, SELFPAY ==
[2023-06-12] MEDS: cyanocobalamin 1,000 mcg/mL SDV 1000 MCG IM (13:01)
[2023-06-12 13:05] LABS: Basophils # 0.1 10^3/uL (0.0-0.1); Basophils % 0.7 %; Eosinophils # 0.1 10^3/uL (0.0-0.8); Eosinophils % 1.3 %; Hematocrit 44.6 % (37-53); Lymphocytes # 2.5 10^3/uL (0.8-4.8); Lymphocytes % 35.7 %; Mean Corpuscular Hemoglobin 29.8 pg (27-33); Mean Corpuscular Volume 90.3 fl (82-101); Mean Platelet Volume 10.1 fL (7.4-10.4); Monocytes # 0.5 10^3/uL (0.2-0.9); Monocytes % 7.1 %; Neutrophils # 3.81 10^3/uL (1.8-7.7); Neutrophils % 54.9 %; Nucleated Red Blood Cells % 0 %; Platelet Count 201 10^3/cmm (157-399); Red Blood Count 4.94 10^6/uL (3.85-5.65); Red Cell Distribution Width 12.6 % (12.1-15.1); White Blood Count 6.94 10^3/uL (3.29-11.43)
[2023-06-12 13:20] LABS: D Dimer 0.34 ug/mLFEU (0-0.59)
[2023-06-12 13:23] LABS: Alanine Aminotransferase 19 U/L (0-41); Albumin Level 4.1 g/dL (3.5-5.2); Alkaline Phosphatase 68 U/L (40-130); Aspartate Amino Transferase 21 U/L (0-40); Blood Urea Nitrogen 9 mg/dL (8-23); Calcium 8.9 mg/dL (8.5-10.5); Carbon Dioxide 27 mmol/L (22-29); Chloride 104 mmol/L (98-107); Globulin 2.4 g/dL (1.3-4.6); Glucose 106 mg/dL (65-115); Osmolality Calculated 289 mOsm/kg (285-295); Sodium 140 mmol/L (136-145); Total Bilirubin 0.7 mg/dL (0.15-1.2); Total Protein 6.5 g/dL (6.6-8.7)
[2023-06-12 13:31] LABS: Anion Gap 13.4 (5-19); Potassium 4.4 mmol/L (3.5-5.1)
[2023-06-12 17:08] LABS: Vitamin B12 1694 pg/mL (232-1245)
[2023-06-12 17:23] LABS: Folate Level > 20.0 ng/mL (4.5-32.2)
[2023-06-16 16:34] LABS: Methylmalonic Acid 76 nmol/L (87-318)
--- NOTE | 2023-06-19 17:47 | PC.NURSE ---
Lab work reviewed with Dr Henley with no furhter Vitamin B 12 injections needed and to follow up with primary physican.mm
== END 2023-07-03 23:59 | disposition home or self-care (01) ==
PROVIDERS: PCP Emergency Medicine Emergency Medical Services; Visit Provider Internal Medicine
DX: Z53.9 Procedure and treatment not carried out, unspecified reason (principal)
CPT/HCPCS: 36415; 80053; 82607; 82746; 83921; 85025; 85378; 86255; 86340; 96372; 99204; J3420

== ENCOUNTER 2023-07-04 13:41 | Outpatient (CLI) | payer OTHER, SELFPAY ==
--- NOTE | 2023-07-04 14:15 | CT_ITS ---
WS: [id number] LDCT LUNG CANCER SCREENING TECHNIQUE: Noncontrast CT of the chest with coronal and sagittal reformatted images. CLINICAL INFORMATION: tobacco use COMPARISON: None. DLP: 63.59 mGy.cm DIvol: Mean CTDIvol: 1.30 (mGy) All CT scans at [facility] use at least one of these dose optimization techniques: automat ed exposure control; mA and/or kV adjustment per patient size (includes targeted exams where dose is matched to clinical indication); or iterative reconstruction. FINDINGS: Several calcified granulomas. Noncalcified subpleural nodule RIGHT lower lobe measuring 6 mm. 2 tiny subpleural nodules in the lingula. Aortic calcification. Normal caliber thoracic aorta. Coronary calcification. Tiny esophageal hiatal h ernia. Focal low-attenuation soft tissue nodule in the retrosternal space measuring 1.5 x 1.7 x 2.1 cm. This demonstrates slight surrounding spiculation and abuts the pericardium. No axillary lymphadenopathy. Adrenal glands are normal. Partially visualized cholelithiasis. Thoracic kyphosis and scoliosis. Hypertrophic changes thoracic spine. IMPRESSION: Low-attenuation soft tissue nodule in the prevascular mediastinum abutting the pericardium with slig ht irregularity. This measures approximately 1.5 x 1.7 x 2.1 cm. Differential considerations include enlarged lymph node, lymphoma, thymoma, thymic cyst, and thymic neoplasm. Recommend further evaluatio n with PET/CT to assess activity. CT/CT lung screening [id number] LUNG-RADS: 2S-Benign Appearance or Behavior with Significant Findings FOLLOW UP: 12 Month: Continue annual screening with LDCT
== END 2023-07-04 13:42 | disposition home or self-care (01) ==
LOC: RAD 13:41
PROVIDERS: PCP Emergency Medicine Emergency Medical Services; Visit Provider Internal Medicine
DX: Z12.2 Encounter for screening for malignant neoplasm of respiratory organs (principal); Z87.891 Personal history of nicotine dependence
CPT/HCPCS: 71271

== ENCOUNTER 2024-03-21 19:12 | Emergency (ER) | payer OTHER, SELFPAY ==
[2024-03-21] VITALS (7 sets, daily range): BP systolic 127–160; BP diastolic 76–90; PULSE 60–87; RESP 16–18; TEMP 36.6; O2SAT 96–100; BMI 24.3
[2024-03-21 20:16] LABS: Basophils % 0.5 %; Eosinophils # 0.1 10^3/uL (0.0-0.8); Eosinophils % 1.7 %; Hematocrit 45.8 % (37-53); Lymphocytes # 2.8 10^3/uL (0.8-4.8); Lymphocytes % 34.3 %; Mean Corpuscular HGB Conc 33.6 g/dL (30-55); Mean Corpuscular Hemoglobin 29.3 pg (27-33); Mean Corpuscular Volume 87.1 fl (82-101); Monocytes # 0.6 10^3/uL (0.2-0.9); Monocytes % 7.7 %; Neutrophils # 4.58 10^3/uL (1.8-7.7); Neutrophils % 55.4 %; Nucleated Red Blood Cells % 0 %; Platelet Count 210 10^3/cmm (157-399); Red Blood Count 5.26 10^6/uL (3.85-5.65); Red Cell Distribution Width 12.8 % (12.1-15.1); White Blood Count 8.27 10^3/uL (3.29-11.43)
--- NOTE | 2024-03-21 20:16 | XRR_ITS ---
PROCEDURE INFORMATION: Exam: XR Abdomen Exam date and time: 03/21/2024 8:21 PM Age: 78 years old Clinical indication: Generalized; Patient HX: Abdominal pain/distention; Constipation TECHNIQUE: Imaging protocol: Radiologic exam of the abdomen. Views: Frontal supine view of the abdomen. 1 View. COMPARISON: CT abdomen pelvis w con* [id number] 07/07/2022 6:11 PM FINDINGS: Gastrointestinal tract: Moderate colonic stool burden. No bowel dilation. Bones/joints: Unremarkable. XR/XR KUB portable [id number] IMPRESSION: Moderate colonic stool burden.
[2024-03-21 20:33] LABS: Alanine Aminotransferase 24 U/L (0-41); Albumin Level 3.9 g/dL (3.5-5.2); Alkaline Phosphatase 66 U/L (40-130); Anion Gap 13.9 (5-19); Aspartate Amino Transferase 19 U/L (0-40); Blood Urea Nitrogen 12 mg/dL (8-23); Calcium 8.7 mg/dL (8.5-10.5); Carbon Dioxide 26 mmol/L (22-29); Chloride 102 mmol/L (98-107); Creatinine Clr Calc Pharmacy 60.3187; Globulin 2.6 g/dL (1.3-4.6); Glucose 93 mg/dL (65-115); Lipase 61 U/L (13-60); Osmolality Calculated 285 mOsm/kg (285-295); Potassium 3.9 mmol/L (3.5-5.1); Sodium 138 mmol/L (136-145); Total Bilirubin 0.6 mg/dL (0.15-1.2); Total Protein 6.5 g/dL (6.6-8.7)
--- NOTE | 2024-03-21 20:48 | CTR_ITS ---
PROCEDURE INFORMATION: Exam: CT Abdomen And Pelvis With Contrast Exam date and time: 03/21/2024 9:32 PM Age: 78 years old Clinical indication: Bloating; Abdominal pain; Patient HX: C/O epigastric pain with distention. History of hiatal hernia. ; Additional info: Abd pain, distension TECHNIQUE: Imaging protocol: Computed tomography of the abdomen and pelvis with contrast. Radiation optimization: All CT scans at this facility use at least one of these dose optimization techniques: automated exposure control; mA and/or kV adjustment per patient size (includes targeted exams where dose is matched to clinical indication); or iterative reconstruction. Contrast material: OMNI 350; Contrast volume: 100 ml; Contrast route: INTRAVENOUS (IV); COMPARISON: CT abdomen pelvis w con* [id number] 07/07/2022 6:11 PM RADIATION DOSE METRICS: Total DLP (mGy-cm): 591.14 FINDINGS: Lungs: Calcified granulomas in the right lower lobe and right middle lobe. No focal consolidation in the lung bases. Liver: Normal. No mass. Gallbladder and biliary ducts: There is a calcified stone in the neck of the gallbladder. No gallbladder thickening. Pancreas: Normal. No ductal dilation. Spleen: Multiple punctate calcifications in the spleen consistent with prior granulomatous infection. Adrenal glands: Normal. No mass. Kidneys and ureters: Right simple appearing renal cysts are present which do not need further follow-up, as well as other subcentimeter hypodensities which are too small to adequately characterize. Stomach and bowel: Unremarkable. No obstruction. No mucosal thickening. Appendix: No evidence of appendicitis. Intraperitoneal space: Unremarkable. No free air. No significant fluid collection. Vasculature: Unremarkable. No abdominal aortic aneurysm. Lymph nodes: Unremarkable. No enlarged lymph nodes. Urinary bladder: Unremarkable as visualized. Reproductive: Unremarkable as visualized. Bones/joints: Severe degenerative disc disease at L4-L5 and L5-S1. Soft tissues: Unremarkable. CT/CT abdomen pelvis w con* [id number] IMPRESSION: 1. No bowel obstruction or inflammatory process associated with the bowel. 2. No free air or significant free fluid in the abdomen or pelvis. 3. No evidence of appendicitis. COMMENTS: Consistent with the [employer]'s Incidental Findings Committee white paper (J Am Diane Radiol 2018): Any incidental renal lesion less than 1 cm or classified as too small to characterize, or any incidental cystic renal lesion characterized as simple-appearing, is likely benign. No follow-up imaging is recommended for these lesions per consensus recommendations based on imaging criteria.
[2024-03-21 21:01] LABS: Charge for UA Resulting for Rev
[2024-03-21 21:03] LABS: Bilirubin Urine Negative (Negative); Blood Urine Trace (Negative); Glucose Urine UA Negative (Normal); Ketones Urine Negative (Negative); Leukocyte Esterase Urine Negative (Negative); Nitrate Urine Negative (Negative); Protein Urine Negative (Negative); Specific Gravity, Urine 1.011 (1.005-1.030); Urine Appearance Clear (CLEAR); Urine Color Yellow (Yellow)
[2024-03-21 21:06] LABS: Bacteria Urine None Seen /hpf; RBC Urine 0-2 /hpf (0-2); Squamous Epithelial Cell Urine 0-5 /hpf (0-5); WBC Urine 0-5 /hpf (0-5)
--- NOTE | 2024-03-21 21:09 | W.ED.ABDPA2 ---
HPI - Abdominal Pain General: Chief Complaint: Abdominal Pain Stated Complaint: stomach pain Time Seen by Provider: 03/21/24 20:05 History of Present Illness: 78-year-old male gentleman with a history of dementia. He also has a history of a small bowel obstruction a few years ago. He presents with abdominal distention, pain that is diffuse, starting today. He is had problems on and off the last couple of weeks his says. Pain was much worse today. Peers improved at some point this afternoon/evening to some degree. No vomiting. No fever. No diarrhea. No blood in the stool. No history of abdominal surgery. Related Data Home Medications Medication Instructions Recorded Confirmed Lactobacillus acidophilus 10 10,000 mmu cells PO DAILY 07/08/22 06/12/23 billion cell capsule (Probiotic) cholecalciferol (vitamin D3) 25 25 mcg PO DAILY 07/08/22 06/12/23 mcg (1,000 unit) capsule (Vitamin D3) donepezil 5 mg/24 hour weekly 5 mg transdermal Q7D 06/12/23 06/12/23 transdermal patch (Adlarity) folic acid 800 mcg tablet 0.8 mg PO DAILY 06/12/23 06/12/23 furosemide 20 mg tablet (Lasix) 40 mg PO DAILY 06/12/23 06/12/23 omega 1-xez-bde-fish oil 60 mg-90 1 cap PO DAILY 06/12/23 06/12/23 mg-500 mg capsule (Fish Oil) vitamin B complex (B 1 tab PO DAILY 06/12/23 06/12/23 Complex-Vitamin B12 tablet) Previous Rx's Medication Instructions Recorded trazodone 50 mg tablet 25 mg (1/2 x 50 mg) PO DAILY PRN 09/26/22 insomnia #5 tabs magnesium citrate (Citrate of 300 ml PO DAILY PRN constipation 03/21/24 Magnesia oral) #296 mL Allergies Allergy/AdvReac Type Severity Reaction Status Date / Time ranitidine Allergy ADR-Vomitin Verified 03/21/24 20:01 g [facility] ED PFSH: Medical History Low vitamin B12 level Superficial thrombophlebitis of lower leg Hiatal hernia Small bowel obstruction Enteritis Surgical History No pertinent past surgical history Family History Denies family history of CAD (coronary artery disease) Cancer Social History Smoking and tobacco/nicotine status: former use of tobacco/nicotine Quit status (tobacco/nicotine): has quit using Year quit tobacco: 1994 Former quit date comment: quit smoking 1994 chewing tobacco, used tobacco 40 years Alcohol intake: never Physical Exam Const: GENERAL APPEARANCE: cooperative and frail appearing; not ill appearing ORIENTATION/CONSCIOUSNESS: Yes awake and Yes oriented to person HENMT: COMMON NORMALS: normocephalic, atraumatic and Normal external nose present HEAD & SCALP: normocephalic and atraumatic FACE & SINUS: normal facial exam and face symmetric NOSE: Normal external nose present Eye: COMMON NORMALS: Equal, round and reactive pupils present and EOMs intact bilaterally PUPIL: Yes Equal, round and reactive pupils present Neck/C-Spine: GENERAL: Yes trachea midline Chest: CHEST: Yes Symmetrical chest wall rise Resp: COMMON NORMALS: normal respiratory effort, No retractions, No use of accessory muscles and clear to auscultation bilaterally AUSCULTATION: clear to auscultation bilaterally Cardio: COMMON NORMALS: regular rate and regular rhythm RATE: regular rate RHYTHM: regular rhythm GI: INSPECTION: Yes abdominal distension PALPATION: Yes Tenderness to palpation present (GI) (diffuse) Extremity: COMMON NORMALS: no pedal edema Neuro: DENNISE COMA SCALE: document GCS findings [place] coma scale eye opening: Spontaneous [place] coma scale verbal response: Orientated [place] coma scale motor response: Obey commands [place] coma scale total score: 15 SENSORIUM/ORIENTATION: Yes oriented to person SENSORY EXAM: Yes extremities (intact) Psych: COMMON NORMALS: speech normal SPEECH: Yes normal speech Skin: COMMON NORMALS: no rashes or lesions noted GENERAL SKIN EXAM: no rashes or lesions noted Course Vital Signs: Vital signs: Vital Signs Temperature 97.8 F 03/21/24 20:01 Pulse Rate 68 03/21/24 23:29 Respiratory Rate 17 03/21/24 23:29 Blood Pressure 145/76 03/21/24 23:29 Pulse Oximetry 98 03/21/24 23:29 Oxygen Delivery Me thod Room Air 03/21/24 22:01 MDM - Abdominal Pain Medical Decision Making 78-year-old male with abdominal pain and distention. X-ray shows moderate stool burden. Unclear as to amount of small bowel dilatation. CT shows no small bowel dilatation or obstruction. There is a calcified stone in the neck of the gallbladder. He is not tender in the right upper quadrant. His liver enzymes are normal. Other laboratory is not remarkable. He will be discharged home on laxatives. Lab Data 03/21/24 20:09 03/21/24 20:09 Labs/Radiology: Radiology Impressions KUB X-Ray 03/21/24 20:16 IMPRESSION: Moderate colonic stool burden. Abdomen/Pelvis CT 03/21/24 20:48 IMPRESSION: 1. No bowel obstruction or inflammatory process associated with the bowel. 2. No free air or significant free fluid in the abdomen or pelvis. 3. No evidence of appendicitis. COMMENTS: Consistent with the [employer]'s Incidental Findings Committee white paper (J Am Diane Radiol 2018): Any incidental renal lesion less than 1 cm or classified as too small to characterize, or any incidental cystic renal lesion characterized as simple-appearing, is likely benign. No follow-up imaging is recommended for these lesions per consensus recommendations based on imaging criteria. Laboratory Results WBC 8.27 10^3/uL (3.29-11.43) 03/21/24 20:09 RBC 5.26 10^6/uL (3.85-5.65) 03/21/24 20:09 Hgb 15.40 g/dL (11.27-16.99) 03/21/24 20:09 Hct 45.8 % (37-53) 03/21/24 20:09 MCV 87.1 fl (82-101) 03/21/24 20:09 MCH 29.3 pg (27-33) 03/21/24 20:09 MCHC 33.6 g/dL (30-55) 03/21/24 20:09 RDW 12.8 % (12.1-15.1) 03/21/24 20:09 Plt Count 210 10^3/cmm (157-399) 03/21/24 20:09 MPV 10.0 fL (7.4-10.4) 03/21/24 20:09 Neut % (Auto) 55.4 % 03/21/24 20:09 Lymph % (Auto) 34.3 % 03/21/24 20:09 Will % (Auto) 7.7 % 03/21/24 20:09 Eos % (Auto) 1.7 % 03/21/24 20:09 Baso % (Auto) 0.5 % 03/21/24 20:09 Neut # (Auto) 4.58 10^3/uL (1.8-7.7) 03/21/24 20:09 Lymph # (Auto) 2.8 10^3/uL (0.8-4.8) 03/21/24 20:09 Will # (Auto) 0.6 10^3/uL (0.2-0.9) 03/21/24 20:09 Eos # (Auto) 0.1 10^3/uL (0.0-0.8) 03/21/24 20:09 Baso # (Auto) 0.0 10^3/uL (0.0-0.1) 03/21/24 20:09 Nucleated RBC % (auto) 0 % 03/21/24 20:09 Nucleated RBCs # 0.0 /100WBC 03/21/24 20:09 Sodium 138 mmol/L (136-145) 03/21/24 20:09 Potassium 3.9 mmol/L (3.5-5.1) 03/21/24 20:09 Chloride 102 mmol/L (98-107) 03/21/24 20:09 Carbon Dioxide 26 mmol/L (22-29) 03/21/24 20:09 Anion Gap 13.9 (5-19) 03/21/24 20:09 BUN 12 mg/dL (8-23) 03/21/24 20:09 Creatinine 1.1 mg/dL (0.7-1.2) 03/21/24 20:09 GFR Calculation Not Reportable 03/21/24 20:09 Glucose 93 mg/dL (65-115) 03/21/24 20:09 Calculated Osmolality 285 mOsm/kg (285-295) 03/21/24 20:09 Calcium 8.7 mg/dL (8.5-10.5) 03/21/24 20:09 Total Bilirubin 0.6 mg/dL (0.15-1.2) 03/21/24 20:09 AST 19 U/L (0-40) 03/21/24 20:09 ALT 24 U/L (0-41) 03/21/24 20:09 Alkaline Phosphatase 66 U/L (40-130) 03/21/24 20:09 C-Reactive Protein 3.0 mg/L (0.0-4.9) 03/21/24 20:09 Total Protein 6.5 g/dL (6.6-8.7) L 03/21/24 20:09 Albumin 3.9 g/dL (3.5-5.2) 03/21/24 20:09 Globulin 2.6 g/dL (1.3-4.6) 03/21/24 20:09 Lipase 61 U/L (13-60) H 03/21/24 20:09 Urine Color Yellow (Yellow) 03/21/24 20:48 Urine Appearance Clear (CLEAR) 03/21/24 20:48 Urine pH 7.0 (5-7) 03/21/24 20:48 Ur Specific [place] 1.011 (1.005-1.030) 03/21/24 20:48 Urine Protein Negative (Negative) 03/21/24 20:48 Urine Glucose (UA) Negative (Normal) 03/21/24 20:48 Urine Ketones Negative (Negative) 03/21/24 20:48 Urine Blood Trace (Negative) A 03/21/24 20:48 Urine Nitrate Negative (Negative) 03/21/24 20:48 Urine Bilirubin Negative (Negative) 03/21/24 20:48 Urine Urobilinogen 1.0 mg/dL (Negative) 03/21/24 20:48 Ur Leukocyte Esterase Negative (Negative) 03/21/24 20:48 Urine RBC 0-2 /hpf (0-2) 03/21/24 20:48 Urine WBC 0-5 /hpf (0-5) 03/21/24 20:48 Ur Squamous Epith Cells 0-5 /hpf (0-5) 03/21/24 20:48 Amorphous Sediment Not Reportable 03/21/24 20:48 Urine Bacteria None seen /hpf (NONE) 03/21/24 20:48 Hyaline Casts 0.40 /lpf 03/21/24 20:48 All radiology interpretation(s) finalized by discharge Discharge Plan Discharge Patient Disposition: Home Clinical Impression: Acute constipation Condition: Stable Prescriptions: New Citrate of Magnesia Solution 300 ml PO DAILY PRN (Reason: constipation) Qty: 296 0RF No Action furosemide [Lasix] 20 mg tablet 40 mg PO DAILY omega 5-hxu-vox-fish oil [Fish Oil] 60-90-500 mg capsule 1 cap PO DAILY vitamin B complex [B Complex-Vitamin B12] Tablet 1 tab PO DAILY folic acid 800 mcg tablet 0.8 mg PO DAILY Adlarity 5 mg/24 hour patch weekly 5 mg transdermal Q7D cholecalciferol (vitamin D3) [Vitamin D3] 25 mcg (1,000 unit) Capsule 25 mcg PO DAILY Probiotic 10 billion cell Capsule 10,000 mmu cells PO DAILY trazodone 50 mg tablet 25 mg PO DAILY PRN (Reason: insomnia) Qty: 5 0RF Discharge Orders: Discharge ED (Routine); Ordered 03/21/24 Ordered By: Eusebio Weaver Referrals: Daxa Martinez MD [Primary Care Provider] - 1-3 days Patient Instructions: Constipation (ED), Opioid Safety, Pain Management Activity Restrictions/Additional Instructions: Return for return of pain, worsening pain despite treatment, fever, vomiting liquids or medications, other concerning symptoms. See your doctor this week. Medication as directed. You will want to stay next to a toilet for several hours following medication administration. Coding Level of Care Code ED Service Crew Supervisor for Pato Goldsmith
[2024-03-21] MEDS: iohexol 350 mg/mL 500 mL Btl (per mL) IV (21:34)
== END 2024-03-21 23:20 | disposition home or self-care (01) ==
PROVIDERS: Emergency Medicine; Emergency Provider Emergency Medicine; PCP Family Medicine
DX: K59.00 Constipation, unspecified (principal); Z87.891 Personal history of nicotine dependence; F03.90 Unspecified dementia, unspecified severity, without behavioral disturbance, psychotic disturbance, mood disturbance, and anxiety
CPT/HCPCS: 36415; 74018; 74177; 80053; 81003; 81015; 83690; 85025; 86140; 99285; Q9967

== ENCOUNTER 2024-12-21 06:48 | Outpatient (CLI) | payer OTHER, SELFPAY ==
--- NOTE | 2024-12-21 07:02 | US_ITS ---
WS: [id number] RIGHT UPPER QUADRANT ULTRASOUND HISTORY: PAIN, GALLSTONES COMPARISON: 12/24/2017 Liver: 14.2 cm in length. Liver is normal size with mild coarse echotexture. Portal Vein: Normal hepatopetal flow with monophasic waveform. Gallbladder: Distended gallbladder. There is a shadowing focus in the neck of the gallbladder. No gallbladder wall thickening or edema. CBD: 0.4 cm Pancreas: Partially visualized. Head and tail are obscured by bowel gas. Right kidney: 11.2 cm in length. Normal size kidney. No hydronephrosis. Well- circumscribed cystic mass from the lower pole measures 4.8 x 4.4 x 4.6 cm. No increased vascularity. There are a few low-level echoes internally which are probably artifacts. Cyst was noted on prior CT. Aorta and IVC: Unremarkable abdominal aorta and IVC. No ascites. US/US abdomen limited [id number] IMPRESSION: 1. Cholelithiasis without evidence for acute cholecystitis. 2. No intrahepatic duct dilatation. 3. RIGHT renal cyst, 4.8 x 4.4 x 4.6 cm.
== END 2024-12-21 06:49 | disposition home or self-care (01) ==
PROVIDERS: PCP Family Medicine; Visit Provider Family Medicine
DX: K80.20 Calculus of gallbladder without cholecystitis without obstruction (principal); N28.1 Cyst of kidney, acquired; R93.3 Abnormal findings on diagnostic imaging of other parts of digestive tract
CPT/HCPCS: 76705

== ENCOUNTER 2025-07-03 10:39 | Emergency (ER) | payer OTHER, SELFPAY ==
--- OUTSIDE RECORDS SUMMARY | 2025-07-03 10:45 | XMS_ITS ---
Author Name SNEHAL HERRMANN Address [address] [facility] [place] [address] Phone Organization [employer] Address [address] [facility] [place] [address] Phone Care Team Providers Care Principal Secretary Name Role Phone MD SNEHAL HERRMANN Unavailable [phone] ALLERGIES, ADVERSE REACTIONS AND ALERTS Allergy Name Allergy Date Allergy Status Allergy Severity Allergy Reaction Ranitidine, [RxNorm: 9143] 11/22/2022 Current MEDICATIONS RxNorm Brand Name Prescription Ordered Value Order Unit Start Date Date Status Fill Status Indications [id number] donepezi l 5 mg tablet SIG: donepezil 5 mg oral tablet, 0 days, Dispense #30 Tablet, 0 RefillsDirect ions: One po qDay with lunch. After one month, switch to the 10 mg strength 30 tablet 2022 Historic [id number] Adlarity 5 mg/24 hour patch weekly SIG: Adlarity 5 mg/24 hour transdermal patch weekly, 28 days, Dispense #4 Transdermal Patch, 12 RefillsDirect ions: Apply one patch to the skin per week (7 days) 4 patch weekly 2022 Historic [id number] Adlarity 5 mg/24 hour patch weekly SIG: Adlarity 5 mg/24 hour transdermal patch weekly, 28 days, Dispense #4 Transdermal Patch, 12 RefillsDirect ions: Apply one patch to the skin per week (7 days) 4 patch weekly 2022 Historic [id number] rivastig mine 4.6 mg/24 hour patch 24 hour SIG: rivastigmine 4.6 mg/24 hour transdermal patch 24 hour, 0 days, Dispense #30 Transdermal Patch, 3 RefillsDirect ions: One to skin daily 30 patch 24 hour 2022 Historic [id number] Adlarity 5 mg/24 hour patch weekly SIG: Adlarity 5 mg/24 hour transdermal patch weekly, 28 days, Dispense #4 Transdermal Patch, 12 RefillsDirect ions: Apply one patch to the skin per week (7 days) 4 patch weekly 2022 Historic [id number] Adlarity 10 mg/24 hour patch weekly SIG: Adlarity 10 mg/24 hour transdermal patch weekly, 28 days, Dispense #4 Transdermal Patch, 12 RefillsDirect ions: One patch to skin weekly 4 patch weekly 2022 Historic [id number] Adlarity 10 mg/24 hour patch weekly SIG: Adlarity 10 mg/24 hour transdermal patch weekly, 28 days, Dispense #4 Transdermal Patch, 12 Refills, Directions: Apply one patch to the skin per week (7 days) 4 patch weekly 2023 Historic [id number] Adlarity 10 mg/24 hour patch weekly SIG: Adlarity 10 mg/24 hour transdermal patch weekly, 28 days, Dispense #4 Transdermal Patch, 12 Refills, Directions: Apply one patch to the skin per week (7 days) 4 patch weekly 2024 Current PROBLEMS Problem Code Problem Description Problem Status Problem Da te Problem End Date F03.B2-UNSPECIFIED DEMENTIA, MODERATE, WITH PSYCHOTIC DISTURBANCE UNSPECIFIED DEMENTIA, MODERATE, WITH PSYCHOTIC DISTURBANCE Current 11/22/2022 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 B group vitamins Current 12/10/2022 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 Current 01/16/2023 PROCEDURES Procedure Description Date Notes NO PROCEDURES PERFORMED ASSESSMENTS Assessment None PLAN OF TREATMENT Assessment Planned Activity LOINC Planned Thad e None CONSULTATION NOTE Note Author Date None HISTORY AND PHYSICAL NOTE Note Author Date None PROGRESS NOTE Note Author Date None DISCHARGE SUMMARY Note Author Date None CHIEF COMPLAINT AND REASON FOR VISIT FUNCTIONAL STATUS Functional or Cognitive Find ing None MENTAL STATUS Cognitive Finding None ENCOUNTERS Encounter Type Provider Diagnoses Start Date Location Disc harged to None SOCIAL HISTORY Social Status Observation Unknown if ever smoked Sex: Male CARE TEAM INFORMATION Principal Secretary Provider ID Role Location Phone SNEHAL HERRMANN [phone] [address], [place] [address] INSURANCE PROVIDERS Payer Name Policy type / Coverage type Covered democrat ID Policy [employer] Unavailable / Unknown [id number] Lianna SIEGEL
--- OUTSIDE RECORDS SUMMARY | 2025-07-03 10:45 | XMS_ITS | Clinical Summary ---
Author Organization [facility] Address [address] 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 [employer] Gender Identity Not on file Sexual Orientation Not on file Occupation Industry Job Start Date Job End Date retired Not on file Not on file Not on file Last Filed Vital Signs Vital Sign Reading Time Taken Comments Blood Pressure 150/86 09/07/2018 1:55 PM [employer]ER Pulse 88 09/07/2018 1:55 PM [employer] Temperature - - Respiratory Rate - - Oxygen Saturation - - Inhaled Oxygen Concentration - - Weight - - Height - - Body Mass Index - - Plan of Treatment Health Maintenance Due Date Last Done Comments DTAP/TDAP/TD VACCINES (1 - Tdap) 1966 PNEUMOCOCCAL VACCINE 50+ YEARS (1 of 1 - PCV) 05/13/19 97 ZOSTER VACCINE (1 of 2) 1997 RSV VACCINE (60+ or ) (1 - 1-dose 75+ series) 2022 INFLUENZA VACCINE (#1) 2025 Insurance [facility] VISN 16 CONSOLIDATED FEE UNIT Care Teams Fruit Buyer Relationship Specialty Start Date End Date Marino Balderas MD PCP - General Emergency Medicine 09/17/18
--- OUTSIDE RECORDS SUMMARY | 2025-07-03 10:45 | XMS_ITS | Clinical Summary ---
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
--- NOTE | 2025-07-03 11:10 | CTR_ITS ---
PROCEDURE INFORMATION: Exam: CT Head Without Contrast Exam date and time: 07/03/2025 11:29 AM Age: 80 years old Clinical indication: Altered mental status/memory loss; Additional info: AMS TECHNIQUE: Imaging protocol: Computed tomography of the head without contrast. Radiation optimization: All CT scans at this facility use at least one of these dose optimization techniques: automated exposure control; mA and/or kV adjustment per patient size (includes targeted exams where dose is matched to clinical indication); or iterative reconstruction. COMPARISON: CT head wo con* [id number] 10/29/2022 11:24 PM RADIATION DOSE METRICS: Total DLP (mGy-cm): 1269.88 FINDINGS: Brain: Normal. No hemorrhage. Bilateral ill-defined periventricular hypodensities consistent with moderate chronic microvascular white matter ischemic changes. Cerebral ventricles: Age-related diffuse cortical atrophic changes with compensatory ventricular dilatation. Paranasal sinuses: Visualized sinuses are unremarkable. No fluid levels. Mastoid air cells: Visualized mastoid air cells are well aerated. Bones: Unremarkable. No acute fracture. Soft tissues: Unremarkable. CT/CT head wo con* [id number] IMPRESSION: No acute intracranial abnormality.
--- NOTE | 2025-07-03 11:10 | XRR_ITS ---
PROCEDURE INFORMATION: Exam: XR Chest Exam date and time: 07/03/2025 11:10 AM Age: 80 years old Clinical indication: Other: Weakness AMS TECHNIQUE: Imaging protocol: Radiologic exam of the chest. Views: 1 view. COMPARISON: CT lung screening [id number] 07/04/2023 1:57 PM FINDINGS: Lungs: Bilateral low lung volumes. No focal lung consolidations. Pleural spaces: Unremarkable. No pleural effusion. No pneumothorax. Heart/Mediastinum: Unremarkable. No cardiomegaly. Bones/joints: Degenerative changes of the thoracic spine and shoulder joints. XR/XR chest 1V portable [id number] IMPRESSION: No focal lung consolidations.
[2025-07-03 11:11] VITALS: BP 171/89; PULSE 73; RESP 18; TEMP 36.5; O2SAT 98
--- NOTE | 2025-07-03 11:15 | W.ED.GENADLT ---
HPI - General Adult General: Chief complaint: General Medical Stated complaint: not feeling good, more confused Time Seen by Provider: 07/03/25 11:06 Source: patient Mode of arrival: ambulatory Limitations: no limitations History of Present Illness: 80-year-old male has a history of Alzheimer's family states that he has had increasing confusion. Patient today stated that he just did not feel well last and he just tells me he does not feel well not really able to explain he denies any pain anywhere family states that he is had no neurodeficits. He is alert to self. Related Data Home Medications ?Medication ?Instructions ?Recorded ?Confirmed Lactobacillus acidophilus 10 10,000 mmu cells PO DAILY 07/08/22 06/12/23 billion cell capsule (Probiotic) cholecalciferol (vitamin D3) 25 25 mcg PO DAILY 07/08/22 06/12/23 mcg (1,000 unit) capsule (Vitamin D3) donepezil 5 mg/24 hour weekly 5 mg transdermal Q7D 06/12/23 06/12/23 transdermal patch (Adlarity) folic acid 800 mcg tablet 0.8 mg PO DAILY 06/12/23 06/12/23 furosemide 20 mg tablet (Lasix) 40 mg PO DAILY 06/12/23 06/12/23 omega 4-brl-suc-fish oil 60 mg-90 1 cap PO DAILY 06/12/23 06/12/23 mg-500 mg capsule (Fish Oil) vitamin B complex (B 1 tab PO DAILY 06/12/23 06/12/23 Complex-Vitamin B12 tablet) Previous Rx's ?Medication ?Instructions ?Recorded trazodone 50 mg tablet 25 mg (1/2 x 50 mg) PO DAILY PRN 09/26/22 insomnia #5 tabs magnesium citrate (Citrate of 300 ml PO DAILY PRN constipation 03/21/24 Magnesia oral) #296 mL Allergies Allergy/AdvReac Type Severity Reaction Status Date / Time ranitidine Allergy ADR-Vomitin Verified 07/03/25 11:13 g PFS ED PFSH: Medical History (Updated 07/03/25 @ 11:57 by Paris Dean MD) Low vitamin B12 level Superficial thrombophlebitis of lower leg Hiatal hernia Small bowel obstruction Enteritis Surgical History No pertinent past surgical history Family History Denies family history of CAD (coronary artery disease) Cancer Social History Smoking and tobacco/nicotine status: former use of tobacco/nicotine Quit status (tobacco/nicotine): has quit using Year quit tobacco: 1994 Former quit date comment: quit smoking 1994 chewing tobacco, used tobacco 40 years Alcohol intake: never Physical Exam Const: COMMON NORMALS: no acute distress, healthy appearing and alert; negative for patient oriented x3 ORIENTATION/CONSCIOUSNESS: Yes oriented to person; not oriented to place and not oriented to time HENMT: COMMON NORMALS: normocephalic and atraumatic HEAD & SCALP: normocephalic and atraumatic Eye: COMMON NORMALS: Equal, round and reactive pupils present and EOMs intact bilaterally PUPIL: Yes Equal, round and reactive pupils present Neck/C-Spine: COMMON NORMALS: full ROM and supple Chest: COMMONS NORMALS: normal inspection of the chest Resp: COMMON NORMALS: normal respiratory effort, No retractions, No use of accessory muscles and clear to auscultation bilaterally AUSCULTATION: clear to auscultation bilaterally Cardio: COMMON NORMALS: regular rate, regular rhythm and No murmurs present (Cardio) RATE: regular rate RHYTHM: regular rhythm GI: COMMON NORMALS: Normal to inspection, nondistended, normoactive bowel sounds present, Soft to palpation, non-tender and no masses PALPATION: Yes Soft to palpation Extremity: COMMON NORMALS: normal to inspection and full ROM Neuro: COMMON NORMALS: moves all extremities and no focal motor deficits; negative for patient oriented x3 SENSORIUM/ORIENTATION: Yes alert, Yes oriented to person, No oriented to place and No oriented to time Psych: COMMON NORMALS: Normal thought process present and cooperative THOUGHT PROCESS: Normal thought process present Skin: COMMON NORMALS: no rashes or lesions noted and no wounds GENERAL SKIN EXAM: no rashes or lesions noted Course Vital Signs: Vital signs: Vital Signs Temperature 97.7 F 07/03/25 11:11 Pulse Rate 76 07/03/25 12:10 Respiratory Rate 18 07/03/25 11:11 Blood Pressure 161/91 07/03/25 12:10 Pulse Oximetry 95 07/03/25 12:10 Oxygen Delivery Mi thod Room Air 07/03/25 11:11 MDM - General Adult Medical Decision Making Patient presents here with confusion does have a history of Alzheimer's. Differential includes CVA, infection. Patient's been well-appearing here no focal deficits he has no signs of a stroke head CT here is normal chest x-ray interpreted by me showed no abnormality labs were all normal no signs UTI likely due to his Alzheimer's he stable for discharge follow-up with PCP return if worsening EKG time 1119 normal sinus rhythm [address] elevation QRS 82 QTc 395 Medical Records I reviewed the patient's medical records. Lab Data I reviewed the patient's lab results. 07/03/25 11:15 07/03/25 11:15 Radiology Impressions Chest X-Ray 07/03/25 11:10 IMPRESSION: No focal lung consolidations. Head CT 07/03/25 11:10 IMPRESSION: No acute intracranial abnormality. Laboratory Results WBC 6.82 10^3/uL (3.29-11.43) 07/03/25 11:15 RBC 5.34 10^6/uL (3.85-5.65) 07/03/25 11:15 Hgb 15.40 g/dL (11.27-16.99) 07/03/25 11:15 Hct 46.6 % (37-53) 07/03/25 11:15 MCV 87.3 fl (82-101) 07/03/25 11:15 MCH 28.8 pg (27-33) 07/03/25 11:15 MCHC 33.0 g/dL (30-55) 07/03/25 11:15 RDW 13.2 % (12.1-15.1) 07/03/25 11:15 Plt Count 201 10^3/cmm (157-399) 07/03/25 11:15 MPV 10.1 fL (7.4-10.4) 07/03/25 11:15 Neut % (Auto) 47.9 % 07/03/25 11:15 Lymph % (Auto) 41.1 % 07/03/25 11:15 [place] % (Auto) 7.5 % 07/03/25 11:15 Eos % (Auto) 2.2 % 07/03/25 11:15 Baso % (Auto) 0.9 % 07/03/25 11:15 Neut # (Auto) 3.27 10^3/uL (1.8-7.7) 07/03/25 11:15 Lymph # (Auto) 2.8 10^3/uL (0.8-4.8) 07/03/25 11:15 [place] # (Auto) 0.5 10^3/uL (0.2-0.9) 07/03/25 11:15 Eos # (Auto) 0.2 10^3/uL (0.0-0.8) 07/03/25 11:15 Baso # (Auto) 0.1 10^3/uL (0.0-0.1) 07/03/25 11:15 Nucleated RBC % (auto) 0 % 07/03/25 11:15 Nucleated RBCs # 0.0 /100WBC 07/03/25 11:15 Sodium 140 mmol/L (136-145) 07/03/25 11:15 Potassium 4.2 mmol/L (3.5-5.1) 07/03/25 11:15 Chloride 103 mmol/L (98-107) 07/03/25 11:15 Carbon Dioxide 26 mmol/L (22-29) 07/03/25 11:15 Anion Gap 15.2 (5-19) 07/03/25 11:15 BUN 8 mg/dL (8-23) 07/03/25 11:15 Creatinine 1.1 mg/dL (0.7-1.2) 07/03/25 11:15 GFR Calculation Not Reportable 07/03/25 11:15 Glucose 97 mg/dL (65-115) 07/03/25 11:15 Calculated Osmolality 288 mOsm/kg (285-295) 07/03/25 11:15 Calcium 9.0 mg/dL (8.5-10.5) 07/03/25 11:15 Total Bilirubin 0.5 mg/dL (0.15-1.2) 07/03/25 11:15 AST 22 U/L (0-40) 07/03/25 11:15 ALT 26 U/L (0-41) 07/03/25 11:15 Alkaline Phosphatase 79 U/L (40-130) 07/03/25 11:15 Total Protein 6.7 g/dL (6.6-8.7) 07/03/25 11:15 Albumin 4.1 g/dL (3.5-5.2) 07/03/25 11:15 Globulin 2.6 g/dL (1.3-4.6) 07/03/25 11:15 Urine Color Yellow (Yellow) 07/03/25 11:47 Urine Appearance Clear (CLEAR) 07/03/25 11:47 Urine pH 7.5 (5-7) 07/03/25 11:47 Ur Specific [place] 1.005 (1.005-1.030) 07/03/25 11:47 Urine Protein Negative (Negative) 07/03/25 11:47 Urine Glucose (UA) Negative (Normal) 07/03/25 11:47 Urine Ketones Negative (Negative) 07/03/25 11:47 Urine Blood Non-haemolysed trace (Negative) 07/03/25 11:47 Urine Nitrate Negative (Negative) 07/03/25 11:47 Urine Bilirubin Negative (Negative) 07/03/25 11:47 Urine Urobilinogen 0.2 mg/dL (Negative) 07/03/25 11:47 Ur Leukocyte Esterase Negative (Negative) 07/03/25 11:47 Urine RBC 0-2 /hpf (0-2) 07/03/25 11:47 Urine WBC 0-5 /hpf (0-5) 07/03/25 11:47 Ur Squamous Epith Cells 0-5 /hpf (0-5) 07/03/25 11:47 Amorphous Sediment Not Reportable 07/03/25 11:47 Urine Bacteria None seen /hpf (NONE) 07/03/25 11:47 Hyaline Casts 0-4 /lpf H 07/03/25 11:47 All radiology interpretation(s) finalized by discharge Discharge Plan Discharge Patient Disposition: Home Clinical Impression: Confusion Condition: Stable Prescriptions: No Action furosemide [Lasix] 20 mg tablet 40 mg PO DAILY omega 7-bjc-xon-fish oil [Fish Oil] 60-90-500 mg capsule 1 cap PO DAILY vitamin B complex [B Complex-Vitamin B12] Tablet 1 tab PO DAILY folic acid 800 mcg tablet 0.8 mg PO DAILY Adlarity 5 mg/24 hour patch weekly 5 mg transdermal Q7D cholecalciferol (vitamin D3) [Vitamin D3] 25 mcg (1,000 unit) Capsule 25 mcg PO DAILY Probiotic 10 billion cell Capsule 10,000 mmu cells PO DAILY trazodone 50 mg tablet 25 mg PO DAILY PRN (Reason: insomnia) Qty: 5 0RF Citrate of Magnesia Solution 300 ml PO DAILY PRN (Reason: constipation) Qty: 296 0RF Discharge Orders: Discharge ED (Routine); Ordered 07/03/25 Ordered By: Paris Dean Referrals: Daxa Martinez MD [Primary Care Provider, Family Practice] Discharge Diet: Advance as tolerated Discharge Activity: Resume usual activity Patient Instructions: Altered Mental Status (ED) Print Language: Salvadorean Coding Level of Care Code ED Recovery Room Nurse for Pato Goldsmith
--- NOTE | 2025-07-03 11:19 | ECG_ITS ---
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 Measurements Intervals [place] Rate: 69 P: 40 PA: 186 QRS: 9 QRSD: 82 T: 76 QT: 376 QTc: 404 Interpretive Statements SINUS RHYTHM WITH OCCASIONAL SUPRAVENTRICULAR PREMATURE COMPLEXES Compared to ECG 05/19/2023 16:01:42 Low QRS voltage now present T-wave abnormality now present Sinus bradycardia no longer present Myocardial infarct finding no longer present Electronically Signed On 07-03-2025 11:32:48 [employer] by Nikolay Reynoso M.D. [email or web address]
[2025-07-03 11:21] LABS: Hematocrit 46.6 % (37-53); Hemoglobin 15.40 g/dL (11.27-16.99); Mean Corpuscular HGB Conc 33.0 g/dL (30-55); Mean Corpuscular Hemoglobin 28.8 pg (27-33); Mean Corpuscular Volume 87.3 fl (82-101); Nucleated Red Blood Cells % 0 %; Platelet Count 201 10^3/cmm (157-399); Red Blood Count 5.34 10^6/uL (3.85-5.65); White Blood Count 6.82 10^3/uL (3.29-11.43)
[2025-07-03 11:38] LABS: Alanine Aminotransferase 26 U/L (0-41); Albumin Level 4.1 g/dL (3.5-5.2); Alkaline Phosphatase 79 U/L (40-130); Aspartate Amino Transferase 22 U/L (0-40); Blood Urea Nitrogen 8 mg/dL (8-23); Calcium 9.0 mg/dL (8.5-10.5); Carbon Dioxide 26 mmol/L (22-29); Chloride 103 mmol/L (98-107); Globulin 2.6 g/dL (1.3-4.6); Glucose 97 mg/dL (65-115); Osmolality Calculated 288 mOsm/kg (285-295); Sodium 140 mmol/L (136-145); Total Protein 6.7 g/dL (6.6-8.7)
[2025-07-03 11:55] LABS: Glucose Urine UA Negative (Normal); Nitrate Urine Negative (Negative); Specific Gravity, Urine 1.005 (1.005-1.030)
[2025-07-03 11:56] LABS: Anion Gap 15.2 (5-19); Potassium 4.2 mmol/L (3.5-5.1)
[2025-07-03 12:10] VITALS: BP 161/91; PULSE 76; O2SAT 95
[2025-07-03 12:14] LABS: Add Urine Microscopic? YES
== END 2025-07-03 12:11 | disposition home or self-care (01) ==
PROVIDERS: Emergency Provider Emergency Medicine; PCP Family Medicine
DX: R41.0 Disorientation, unspecified (principal); Z87.891 Personal history of nicotine dependence
CPT/HCPCS: 36415; 70450; 71045; 80053; 81001; 85025; 93005; 99285